=== PATIENT | male | born 1965 | race Caucasian/White ===

== ENCOUNTER 2017-11-10 12:10 | Emergency (ER) | payer MEDICAID ==
[2017-11-10 12:12] VITALS: BMI 29.5
[2017-11-10] MEDS ORDERED: Sodium Chloride 0.9% 1,000 ML IV STA (12:59)
--- NOTE | 2017-11-10 13:11 | ED PDOC ---
Arrival/HPI - General Chief Complaint: Seizure Time Seen by Provider: 11/10/17 12:39 Historian: Patient - History of Present Illness Narrative History of Present Illness (Text): 11/10/17 12:58 A 52 year old male, whose past medical history includes hypertension, brought into the emergency department by EMS accompanied by complaining of an episode of drowsiness. Patient reports this morning his blood pressure was high and took 2 pills of his bp medication instead of 1. He notes while sitting in the car he felt drowsy. witnessed patient shaking for approximately 10 minutes, but denies any loss of consciousness or urinary/ bowel incontinence. Patient denies any fever, chills, nausea, vomiting, abdominal pain, chest pain, shortness of breath, headache, dizziness or any other complaints. Time/Duration: Prior to Arrival Symptom Course: Improving Context: Other Past Medical History - Provider Review Nursing Documentation Reviewed: Yes - Infectious Disease Hx of Infectious Diseases: None - Cardiac Hx Hypertension: Yes - Endocrine/Metabolic Hx Diabetes Mellitus Type 2: Yes - Psychiatric Hx Substance Use: No - Anesthesia Hx Anesthesia: No Family/Social History - Physician Review Nursing Documentation Reviewed: Yes Family/Social History: No Known Family HX Smoking Status: Heavy Smoker > 10 Cigarettes Daily Hx Alcohol Use: No Hx Substance Use: No Allergies/Home Meds Allergies/Adverse Reactions: Allergies No Known Allergies Allergy (Verified 11/10/17 12:19) Home Medications: Home Meds Medication Instructions Recorded Confirmed Alogliptin Benzoate [Alogliptin] 1 tab PO DAILY 11/10/17 11/10/17 Atorvastatin [Lipitor] 1 tab PO DAILY 11/10/17 11/10/17 Empagliflozin [Jardiance] 1 tab PO DAILY 11/10/17 11/10/17 Gemfibrozil [Lopid] 1 tab PO BID 11/10/17 11/10/17 Glimepiride [Amaryl] 1 tab PO BID 11/10/17 11/10/17 Insulin Glargine,Hum.rec.anlog 5 unit SC HS 11/10/17 11/10/17 [Basaglar Kwikpen U-100] Lisinopril [Zestril] 1 tab PO DAILY 11/10/17 11/10/17 Lisinopril [Zestril] 1 tab PO HS 11/10/17 11/10/17 MetFORMIN [glucoPHAGE] 1 tab PO BID 11/10/17 11/10/17 Review of Systems - Physician Review All systems were reviewed & negative as marked: Yes - Review of Systems Constitutional: Other (drowsiness). absent: Fevers, Night Sweats Respiratory: absent: SOB Cardiovascular: absent: Chest Pain Gastrointestinal: absent: Abdominal Pain, Nausea, Vomiting Neurological: absent: Headache, Dizziness Physical Exam - Physical Exam Narrative Physical Exam (Text): Constitutional: No acute distress. Mildly drowsy. Head: Normocephalic. Atraumatic. Eyes: PERRL. ENT: Moist mucous membranes. No tongue biting. Neck: Supple. Cardiovascular: Regular rate. Chest: No tenderness. Respiratory: Clear to auscultation bilaterally. GI: Soft. Nontender. Nondistended. Back: No CVA tenderness. Musculoskeletal: No tenderness or swelling of extremities. Skin: No rash. Neurologic: Alert and Oriented x3, no focal deficit. Appearance: Positive for: Well-Appearing, Non-Toxic, Comfortable Pain Distress: None Mental Status: Positive for: Alert and Oriented X 3 Finger Stick Blood Glucose: 115 Medical Decision Making ED Course and Treatment: EKG shows NSR at [address]-segment elevations. Interpreted by me. Report Date : 11/10/2017 14:14:03 Procedure: Chest xray Dictator : Prabhjot Castaneda MD IMPRESSION: Cardiomegaly/mild CHF. Marked abnormalities on work up. I informed patient of risk of infection, CHF, other life threatening or disability causing illness and recommended admission. - Lab Interpretations Lab Results: 11/10/17 13:21 11/10/17 13:21 Lab Results 11/10/17 13:21: Sodium 145, Potassium 3.8, Chloride 106, Carbon Dioxide 17 L, Anion Gap 25 H, BUN 12, Creatinine 1.0, Est GFR ( Amer) > 60, Est GFR ( Non-Af Amer) > 60, Random Glucose 142 H, Calcium 9.9, Total Bilirubin 0.5, AST 44, ALT 33, Alkaline Phosphatase 94, Total Creatine Kinase 198, Total Protein 8.5 H, Albumin 4.5, Globulin 4.1, Albumin/Globulin Ratio 1.1, Lipase 216 11/10/17 13:21: WBC 22.0 H, RBC 5.92, Hgb 18.2 H*, Hct 53.7 H, MCV 90.7, MCH 30.7, MCHC 33.9, RDW 14.9 H, Plt Count 429, MPV 10.6, Gran % 46.7 L, Lymph % ( Auto) 47.5 H, [place] % (Auto) 4.8, Eos % (Auto) 0.8 L, Baso % (Auto) 0.2, Gran # 10.26 H, Lymph # (Auto) 10.4 H, [place] # (Auto) 1.1 H, Eos # (Auto) 0.2, Baso # ( Auto) 0.04 - RAD Interpretation Radiology Orders: 11/10/17 12:58 CHEST PORTABLE [RAD] Stat - Medication Orders Current Medication Orders: Discontinued Medications Sodium Chloride (Sodium Chloride 0.9%) 1,000 mls @ 999 mls/hr IV .Q1H1M STA Stop: 11/10/17 13:59 Last Admin: 11/10/17 14:16 Dose: 999 mls/hr eMAR Start Stop Document 11/10/17 14:16 [email or web address] (Rec: 11/10/17 14:16 [id number]) Intravenous Solution Start Date 11/10/17 Start Time 14:16 End Date 11/10/17 - Scribe Statement The provider has reviewed the documentation as recorded by the Robin Randhawa Provider Scribe Attestation: All medical record entries made by the Scribe were at my direction and personally dictated by me. I have reviewed the chart and agree that the record accurately reflects my personal performance of the history, physical exam, medical decision making, and the department course for this patient. I have also personally directed, reviewed, and agree with the discharge instructions and disposition. Disposition/Present on Arrival - Present on Arrival Any Indicators Present on Arrival: No History of DVT/PE: No History of Uncontrolled Diabetes: No Urinary Catheter: No History of Decub. Ulcer: No History Surgical Site Infection Following: None - Disposition Have Diagnosis and Disposition been Completed?: Yes Diagnosis: Leukocytosis, CHF (congestive heart failure) Disposition: AGAINST MEDICAL ADVICE Disposition Time: 14:28 Condition: GUARDED Discharge Instructions (ExitCare): Heart Failure, Adult (DC), Leaving Against Medical Advice Forms: [employer] (Polish) Against Medical Advice - AMA Patient Left Against Medical Advice: The patient declines admission to the hospital and wishes to leave the Emergency Department. This action is against my medical advice. This decision was made with informed refusal. The patient was told that admission to the hospital is necessary. Explanation of the reasons why were discussed. The risks of leaving were explained to the patient and include, but are not limited to, worsening of known or currently unknown conditions, permanent disability and from undiagnosed or untreated conditions. The patient has the capacity to make this informed decision and understands my explanation of the current medical problem and risks of leaving. The patient voluntarily accepts these risks and signed an AMA form documenting our conversation. The patient was given the opportunity to ask questions and reconsider. The patient was encouraged to return to the Emergency Department at any time for further care.
[2017-11-10 13:30] LABS: BASO # 0.04 K/mm3 (0.0-2.0); BASO % 0.2 % (0.0-3.0); EOS # 0.2 (0.0-0.7); EOS % 0.8 % (1.5-5.0); GRAN # 10.26 (1.4-6.5); GRAN % 46.7 % (50.0-68.0); LYMPH # 10.4 (1.2-3.4); LYMPH % 47.5 % (22.0-35.0); MEAN CELL VOLUME 90.7 fl (80.0-105.0); MEAN CORPUSCULAR HEMOGLOBIN 30.7 pg (25.0-35.0); MEAN CORPUSCULAR HGB CONC 33.9 g/dl (31.0-37.0); MEAN PLATELET VOLUME 10.6 fl (7.0-11.0); MONO # 1.1 (0.1-0.6); MONO % 4.8 % (1.0-6.0); RBC 5.92 10^6/uL (3.5-6.1); RED CELL DISTRIBUTION WIDTH 14.9 % (11.5-14.5)
[2017-11-10 13:40] LABS: ALB/GLOB RATIO 1.1 (1.1-1.8); ALBUMIN 4.5 g/dL (3.0-4.8); ALT/SGPT 33 U/L (7-56); AST/SGOT 44 U/L (17-59); BLOOD UREA NITROGEN 12 mg/dL (7-21); CALCIUM 9.9 mg/dL (8.4-10.5); GFR AFRICAN-AMERICAN > 60; GFR NON-AFRICAN AMERICAN > 60; LIPASE 216 U/L (23-300)
[2017-11-10 13:48] LABS: HEMOGLOBIN 18.2 g/dL (14.0-18.0)
--- NOTE | 2017-11-10 14:15 | RAD ---
HISTORY: drowsy COMPARISON: No prior. FINDINGS: LUNGS: Pulmonary vascular congestion. PLEURA: No significant pleural effusion identified, no pneumothorax apparent. CARDIOVASCULAR: Cardiomegaly OSSEOUS STRUCTURES: No significant abnormalities. VISUALIZED UPPER ABDOMEN: Normal. OTHER FINDINGS: None. IMPRESSION: Cardiomegaly/mild CHF.
[2017-11-10 15:29] VITALS: BP 139/89; PULSE 89; TEMP 98.1
[2017-11-10 15:31] VITALS: RESP 18; O2SAT 98
--- NOTE | 2017-11-10 16:40 | CARD ---
APPROVED REPORT EKG Measurement Heart [id number] <Conclusion> Normal sinus rhythm Possible Left atrial enlargement Left axis deviation Incomplete right bundle branch block Nonspecific T wave abnormality Abnormal ECG
== END 2017-11-10 15:31 | disposition left against medical advice (07) ==
LOC: ED 12:10
DX: I11.0 Hypertensive heart disease with heart failure (principal); I50.9 Heart failure, unspecified; D72.829 Elevated white blood cell count, unspecified; F17.210 Nicotine dependence, cigarettes, uncomplicated
CPT/HCPCS: 71045; 80053; 82550; 83690; 85025; 93005; 96374; 99285; J1885; J7040

== ENCOUNTER 2017-11-11 11:34 | Inpatient (IN) | payer MEDICAID ==
--- NOTE | 2017-11-11 12:18 | ED PDOC ---
Arrival/HPI - General Chief Complaint: Back Pain Time Seen by Provider: 11/11/17 11:36 Historian: Patient, EMS - History of Present Illness Time/Duration: Other (Yesterday) Symptom Onset: Gradual Symptom Course: Worsening Quality: Aching Severity Level: Severe Activities at Onset: Rest Associated Symptoms (Text): 11/11/17 12:15 Patient signed out from the emergency department AMA yesterday. He reports that his blood pressure was elevated and he took extra blood pressure medication and then became lethargic. Since that time he has developed severe low back pain, which is made worse by movement. He has some chronic dyspnea, which is worse with exertion. No chest pain. No cough congestion or URI. No palpitations. No abdominal pain nausea vomiting. No genitourinary symptoms. He works as a analyst business analysis. He denies any injury or trauma. He appears to be in severe distress. Past Medical History - Infectious Disease Hx of Infectious Diseases: None - Cardiac Hx Congestive Heart Failure: Yes Hx Hypertension: Yes - Endocrine/Metabolic Hx Diabetes Mellitus Type 2: Yes - Psychiatric Hx Substance Use: No - Anesthesia Hx Anesthesia: No Family/Social History - Physician Review Nursing Documentation Reviewed: Yes Family/Social History: Unknown Family HX Smoking Status: Heavy Smoker > 10 Cigarettes Daily Hx Alcohol Use: No Hx Substance Use: No Allergies/Home Meds Allergies/Adverse Reactions: Allergies No Known Allergies Allergy (Verified 11/11/17 11:41) Home Medications: Home Meds Medication Instructions Recorded Confirmed Alogliptin Benzoate [Alogliptin] 1 tab PO DAILY 11/10/17 11/10/17 Atorvastatin [Lipitor] 1 tab PO DAILY 11/10/17 11/10/17 Empagliflozin [Jardiance] 1 tab PO DAILY 11/10/17 11/10/17 Gemfibrozil [Lopid] 1 tab PO BID 11/10/17 11/10/17 Glimepiride [Amaryl] 1 tab PO BID 11/10/17 11/10/17 Insulin Glargine,Hum.rec.anlog 5 unit SC HS 11/10/17 11/10/17 [Basaglar Kwikpen U-100] Lisinopril [Zestril] 1 tab PO DAILY 11/10/17 11/10/17 Lisinopril [Zestril] 1 tab PO HS 11/10/17 11/10/17 MetFORMIN [glucoPHAGE] 1 tab PO BID 11/10/17 11/10/17 Review of Systems - Physician Review All systems were reviewed & negative as marked: Yes - Review of Systems Constitutional: absent: Fatigue, Fevers Respiratory: SOB. absent: Cough, Sputum, Wheezing Cardiovascular: absent: Chest Pain, Palpitations, Syncope Gastrointestinal: absent: Abdominal Pain, Diarrhea, Nausea, Vomiting Genitourinary Male: absent: Dysuria, Frequency, Hematuria Musculoskeletal: Back Pain. absent: Neck Pain Neurological: absent: Headache, Dizziness, Focal Weakness Physical Exam Vital Signs Temp Pulse Resp BP Pulse Ox 11/11/17 14:32 98.9 F 83 20 160/83 H 95 11/11/17 11:45 99.3 F 98 H 20 134/55 L 95 Temperature: Afebrile Blood Pressure: Normal Pulse: Regular Respiratory Rate: Normal Appearance: Positive for: Well-Appearing, Non-Toxic, Uncomfortable Pain Distress: Severe Mental Status: Positive for: Alert and Oriented X 3 - Systems Exam Head: Present: Atraumatic, Normocephalic Pupils: Present: PERRL Extroacular Muscles: Present: EOMI Conjunctiva: Present: Normal Mouth: Present: Moist Mucous Membranes Pharnyx: No: ERYTHEMA, EXUDATE, TONSILS ENLARGED Neck: Present: Normal Range of Motion Respiratory/Chest: Present: Clear to Auscultation, Good Air Exchange, Decreased Breath Sounds. No: Respiratory Distress, Accessory Muscle Use Cardiovascular: Present: Regular Rate and Rhythm, Normal S1, S2. No: Murmurs Abdomen: Present: Normal Bowel Sounds. No: Tenderness, Distention, Peritoneal Signs, Rebound, Guarding Back: Present: Normal Inspection, Paraspinal Tenderness (Bilateral lumbar paraspinous tenderness with spasm. No scoliosis. Negative straight leg raising.) . No: CVA Tenderness, Midline Tenderness Upper Extremity: Present: Normal Inspection. No: Cyanosis, Edema Lower Extremity: Present: Normal Inspection. No: Edema Neurological: Present: GCS=15, CN II-XII Intact, Speech Normal, Motor Func Grossly Intact Skin: Present: Warm, Dry, Normal Color. No: Rashes Psychiatric: Present: Alert, Oriented x 3, Normal Insight, Normal Concentration Medical Decision Making ED Course and Treatment: 11/11/17 13:44 EKG shows normal sinus rhythm rate approximately 85 with inverted T waves laterally and Q waves inferiorly with poor R-wave progression and no old available for comparison 11/11/17 15:11 Minimal improvement in low back pain. Patient agrees to admission to the hospital today. Hospitalist has been consulted. - Lab Interpretations Lab Results: 11/11/17 12:57 11/11/17 12:57 Lab Results 11/11/17 12:57: Sodium 139, Potassium 3.6, Chloride 107, Carbon Dioxide 23, Anion Gap 9 L, BUN 16, Creatinine 0.9, Est GFR ( Amer) > 60, Est GFR (Non -Af Amer) > 60, Random Glucose 231 H, Calcium 9.2, Total Bilirubin 0.5, AST 41, ALT 28, Alkaline Phosphatase 63, Lactate Dehydrogenase 934 H, Total Creatine Kinase 1312 H, CK-MB (CK-2) 2.5, CK-MB (CK-2) % Cancelled, Troponin I 0.01, NT- Pro-B Natriuret Pep 677 H, Total Protein 7.2, Albumin 3.7, Globulin 3.5, Albumin /Globulin Ratio 1.1 11/11/17 12:57: WBC 13.2 H D, RBC 5.47, Hgb 16.7, Hct 48.6, MCV 88.8, MCH 30.5, MCHC 34.4, RDW 14.6 H, Plt Count 328, MPV 9.9, Gran % 68.2 H, Lymph % (Auto) 27.0, [place] % (Auto) 4.1, Eos % (Auto) 0.5 L, Baso % (Auto) 0.2, Gran # 8.97 H, Lymph # (Auto) 3.6 H, [place] # (Auto) 0.5, Eos # (Auto) 0.1, Baso # (Auto) 0.03 - RAD Interpretation Radiology Orders: 11/11/17 12:14 CHEST TWO VIEWS (PA/LAT) [RAD] Stat LS SPINE WITH OBL > 18 YRS OLD [RAD] Stat Lumbosacral spine shows a compression fracture of L1, age indeterminate. Chest 2 view shows no infiltrate effusion or cardiomegaly. 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 No Sleep Is patient sleeping during reassessment? No Presence of Pain Presence of Pain Yes Pain Scale Used Pain Scale Used Numeric Location Upper or Lower Lower Pain Location Body Site Back Description Description Constant Aggravating Factors ADL's IVP Administration Document 11/11/17 14:28 OCS (Rec: 11/11/17 14:28 OCS [id number]) Charges for Administration # of IVP Administrations 1 Disposition/Present on Arrival - Present on Arrival Any Indicators Present on Arrival: No History of DVT/PE: No History of Uncontrolled Diabetes: No Urinary Catheter: No History of Decub. Ulcer: No History Surgical Site Infection Following: None - Disposition Have Diagnosis and Disposition been Completed?: Yes Diagnosis: Congestive heart failure, Lumbar compression fracture, Hyperglycemia due to type 1 diabetes mellitus, Leukocytosis Disposition: HOSPITALIZED Disposition Time: 15:12 Patient Plan: Observation, Telemetry Condition: GOOD Discharge Instructions (ExitCare): Heart Failure (ED) Referrals: Gil Villalobos [Primary Care Provider] - Follow up with primary Forms: [employer] ([place])
[2017-11-11 13:03] LABS: BASO # 0.03 K/mm3 (0.0-2.0); BASO % 0.2 % (0.0-3.0); EOS # 0.1 (0.0-0.7); EOS % 0.5 % (1.5-5.0); GRAN # 8.97 (1.4-6.5); GRAN % 68.2 % (50.0-68.0); HEMOGLOBIN 16.7 g/dL (14.0-18.0); LYMPH # 3.6 (1.2-3.4); MEAN CELL VOLUME 88.8 fl (80.0-105.0); MEAN CORPUSCULAR HEMOGLOBIN 30.5 pg (25.0-35.0); MEAN CORPUSCULAR HGB CONC 34.4 g/dl (31.0-37.0); MEAN PLATELET VOLUME 9.9 fl (7.0-11.0); MONO # 0.5 (0.1-0.6); MONO % 4.1 % (1.0-6.0); RBC 5.47 10^6/uL (3.5-6.1); RED CELL DISTRIBUTION WIDTH 14.6 % (11.5-14.5); WHITE BLOOD COUNT 13.2 10^3/ul (4.5-11.0)
[2017-11-11 13:15] LABS: ALB/GLOB RATIO 1.1 (1.1-1.8); ALBUMIN 3.7 g/dL (3.0-4.8); ALT/SGPT 28 U/L (7-56); AST/SGOT 41 U/L (17-59); BLOOD UREA NITROGEN 16 mg/dL (7-21); CALCIUM 9.2 mg/dL (8.4-10.5); GFR AFRICAN-AMERICAN > 60; GFR NON-AFRICAN AMERICAN > 60
[2017-11-11 13:24] LABS: B-TYPE NATRIURETIC PEPTIDE 677 pg/mL (0-450); TROPONIN I 0.01 ng/mL
[2017-11-11 13:37] LABS: CK-MB 2.5 ng/mL (0.0-3.6)
--- NOTE | 2017-11-11 14:50 | RAD ---
PROCEDURE: Radiographs of the Lumbar Spine. HISTORY: pain COMPARISON: No prior. FINDINGS: BONES: Compression deformities L1 and L4, age-acuity unknown. Loss of height of L5 vertebral body is partially obscured. DISC SPACES: Unremarkable. OTHER FINDINGS: None. IMPRESSION: Multiple compression deformities L1, L4, L5 noted. Etiology/acuity unknown. No comparison studies.
--- NOTE | 2017-11-11 14:51 | RAD ---
HISTORY: sob COMPARISON: No prior. TECHNIQUE: Chest PA and lateral FINDINGS: LUNGS: No active pulmonary disease. PLEURA: No significant pleural effusion identified. No pneumothorax apparent. CARDIOVASCULAR: No radiographic findings to suggest acute or significant cardiovascular disease. OSSEOUS STRUCTURES: No significant abnormalities. VISUALIZED UPPER ABDOMEN: Normal. OTHER FINDINGS: None. IMPRESSION: No active disease.
--- NOTE | 2017-11-11 15:36 | CP.PCM.HP ---
<MckeeChavez - Last Filed: 11/11/17 17:12> History of Present Illness - History of Present Illness History of Present Illness: 52 year old male with past medical history of DM, HTN, HLD presents with complaints of lower back pain which began yesterday. He states it is so painful that he cannot move and located in left lower back. He denies any radiation of the pain as well as any recent trauma or falls. Patient also admits to taking extra blood pressure medication yesterday because of high blood pressure, he cannot recall the name. Patient states he is feeling fatigue and his 5 year old daughter has been sick with a cold. Patient denies chest pain, shortness of breath, nausea, vomiting, fever, cough, recent travel or any other complaints at this time. PMH: DM, HTN, HLD PSH: none Allergies: denies Social: more than a pack a day for 40 years, denies alcohol or drug use Family: mother had DM Meds: lipitor, jardiance, Lopid, amaryl, insulin, metformin, lisinopril PMD: [place] Present on Admission - Present on Admission Any Indicators Present on Admission: No Review of Systems - Constitutional Constitutional: absent: Chills, Fever - EENT Eyes: absent: Blurred Vision, Change in Vision Ears: absent: Disequilibrium, Dizziness Nose/Mouth/Throat: absent: Nasal Congestion, Nasal Discharge - Cardiovascular Cardiovascular: absent: Chest Pain, Chest Pain at Rest, Chest Pain with Activity , Dyspnea - Respiratory Respiratory: Dyspnea on Exertion. absent: Cough, Dyspnea - Gastrointestinal Gastrointestinal: absent: Abdominal Pain, Constipation, Diarrhea, Nausea, Vomiting - Genitourinary Genitourinary: absent: Change in Urinary Stream, Difficulty Urinating - Integumentary Integumentary: absent: Sores, Striae - Neurological Neurological: absent: Disequilibrium, Dizziness, Tingling, Weakness Past Patient History - Infectious Disease Hx of Infectious Diseases: None - Past Social History Smoking Status: Heavy Smoker > 10 Cigarettes Daily - CARDIAC Hx Congestive Heart Failure: Yes Hx Hypertension: Yes - ENDOCRINE/METABOLIC Hx Diabetes Mellitus Type 2: Yes - PSYCHIATRIC Hx Substance Use: No - SURGICAL HISTORY Hx Surgeries: No - ANESTHESIA Hx Anesthesia: No Meds Allergies/Adverse Reactions: Allergies Allergy/AdvReac Type Severity Reaction Status Date / Time No Known Allergies Allergy Verified 11/11/17 11:41 Physical Exam - Constitutional Appears: Non-toxic, No Acute Distress Additional comments: obese - Head Exam Head Exam: ATRAUMATIC, NORMAL INSPECTION, NORMOCEPHALIC - Eye Exam Eye Exam: EOMI, Normal appearance - ENT Exam ENT Exam: Mucous Membranes Moist - Neck Exam Neck exam: Positive for: Normal Inspection - Respiratory Exam Respiratory Exam: Clear to Auscultation Bilateral, NORMAL BREATHING PATTERN - Cardiovascular Exam Cardiovascular Exam: REGULAR RHYTHM, +S1, +S2 - GI/Abdominal Exam GI & Abdominal Exam: Normal Bowel Sounds, Soft. absent: Tenderness - Extremities Exam Extremities exam: Negative for: pedal edema, tenderness - Neurological Exam Neurological exam: Alert, Oriented x3 Results - Vital Signs Recent Vital Signs: Last Vital Signs Temp 98.9 F 11/11/17 14:32 Pulse 83 11/11/17 14:32 Resp 20 11/11/17 14:32 BP 160/83 H 11/11/17 14:32 Pulse Ox 95 11/11/17 14:32 - Labs Result Diagrams: 11/11/17 12:57 11/11/17 12:57 Labs: Laboratory Results - last 24 hr 11/11/17 11/11/17 12:57 12:57 WBC 13.2 H D RBC 5.47 Hgb 16.7 Hct 48.6 MCV 88.8 MCH 30.5 MCHC 34.4 RDW 14.6 H Plt Count 328 MPV 9.9 Gran % 68.2 H Lymph % (Auto) 27.0 [place] % (Auto) 4.1 Eos % (Auto) 0.5 L Baso % (Auto) 0.2 Gran # 8.97 H Lymph # (Auto) 3.6 H [place] # (Auto) 0.5 Eos # (Auto) 0.1 Baso # (Auto) 0.03 Sodium 139 Potassium 3.6 Chloride 107 Carbon Dioxide 23 Anion Gap 9 L BUN 16 Creatinine 0.9 Est GFR ( Amer) > 60 Est GFR (Non-Af Amer) > 60 Random Glucose 231 H Calcium 9.2 Total Bilirubin 0.5 AST 41 ALT 28 Alkaline Phosphatase 63 Lactate Dehydrogenase 934 H Total Creatine Kinase 1312 H CK-MB (CK-2) 2.5 CK-MB (CK-2) % Cancelled Troponin I 0.01 NT-Pro-B Natriuret Pep 677 H Total Protein 7.2 Albumin 3.7 Globulin 3.5 Albumin/Globulin Ratio 1.1 Assessment & Plan - Assessment and Plan (Free Text) Assessment: 52 year old male with past medical history of DM, HTN, HLD presents with complaints of lower back pain which began yesterday. Patient also complains of fatigue. Plan: 1. Back Pain -Xray of LS spine showing compression deformities L1, L4, L5 noted. Etiology/ acuity unknown. No comparison studies -tylenol for pain -flexeril given in ED -lidocaine patch -flexeril -PT evaluation pending -MRI lumbar spine pending 2. Leukocytosis seocndary to possible viral illness -Procal pending -blood cultures pending -urine cultures pending -afebrile 3. DM -ISS high with ACHS -low consistent carb diet -A1C pending 4. HTN -monitor -continue home meds 5. HLD -continue lipitor 40 -Lipid panel pending 6. Possible underlying CHF -clnically no signs of fluid overload -EKG NSR @85, pending official read -chest xray: no congestion, no cardiomegaly -BNP: 677 -Cardiology consulted, Tadeo, follow recs -T4, TSH pending -echo pending -troponins x3 trend 7. Lethargy -CT head pending -EEG to rule out seizure 8. Elevated CPK -follow levels daily with labs -NS@100 PPX -protonix -heparin SC <Oliver Hicks - Last Filed: 11/11/17 18:50> Results - Vital Signs Recent Vital Signs: Last Vital Signs Temp 98.9 F 11/11/17 18:30 Pulse 83 11/11/17 18:30 Resp 18 11/11/17 18:30 BP 160/83 H 11/11/17 18:30 Pulse Ox 95 11/11/17 14:32 - Labs Result Diagrams: 11/11/17 12:57 11/11/17 12:57 Attending/Attestation - Attestation I have personally seen and examined this patient.: Yes I have fully participated in the care of the patient.: Yes I have reviewed all pertinent clinical information: Yes Notes (Text): 11/11/17 18:43 attending note; Patient seen and examined with resident in ER. Patient is a 52-year-old male with past medical history of diabetes, hypertension, hyperlipidemia, obesity presents with complaints of lower back pain which began yesterday. He states it is so painful that he cannot move and located in left lower back. patient was evaluated in the ER yesterday. Found to have elevated white count and hypertension. Patient signed AGAINST MEDICAL ADVICE. came back with generalized weakness. Patient had recent sick contact with 5 year old daughter. Denied any recorded temperature at home. Looks toxic. lethargy/questionable seizure yesterday. EEG ordered. Possibly the reason for elevated CPK. shortness of breath; EKG showed nonspecific ST inversion in lateral leads. Cardiac enzymes ordered. echocardiogram ordered. Cardiology evaluation requested. Mild rhabdomyolysis; patient had chills yesterday. Denies any fall or injury. Denies any drug abuse. Continue IV fluids. Chest x-ray is negative for acute infiltrates. Diabetes; on insulin sliding scale. Monitor and add home meds. Leukocytosis; blood, urine culture, pro-calcitonin ordered. rapid flu ordered. Back pain; x-ray showed multiple compression fracture L1, L4-L5. Patient denies any injury or fall. MRI ordered. PT evaluation requested. Currently able to move extremities. No urinary or bowel incontinence. No saddle anesthesia. upon discharge patient will up with PMD Dr. Villalobos. 11/11/17 18:50
[2017-11-11 16:20] LABS: HDL CHOLESTEROL 32 mg/dL (29-60)
[2017-11-11 16:30] LABS: LDL CHOLESTEROL 133 mg/dL (0-129)
[2017-11-11 16:36] LABS: T4 7.1 ug/dL (5.5-11.0)
[2017-11-11] MEDS: Insulin Lispro (HUMAlog) HIGH Coverage SC SCH ×2 (18:30→23:48)
[2017-11-11 18:34] VITALS: BMI 33.3
[2017-11-11] MEDS: Lidocaine 5% Patch TD SCH (18:52)
--- NOTE | 2017-11-11 19:00 | CT ---
EXAM: CT Head Without Intravenous Contrast EXAM DATE/TIME: 11/11/2017 5:08 PM CLINICAL HISTORY: 52 years old, male; Signs and symptoms; Malaise or fatigue; Additional info: Lethargy TECHNIQUE: Axial computed tomography images of the head/brain without intravenous contrast. All CT scans at this facility use one or more dose reduction techniques, viz.: automated exposure control; ma/kV adjustment per patient size (including targeted exams where dose is matched to indication; i.e. head); or iterative reconstruction technique. Coronal and sagittal reformatted images were created and reviewed. COMPARISON: There are no prior studies for comparison. FINDINGS: Brain: Ventricles are normal in size and configuration. There is no midline shift. There is a heterogeneous primarily increased attenuation 1.7 x 1.6 x 1.7 cm left occipital mass. There is surrounding vasogenic edema. There are no abnormal fluid collections. Hutchinson-white differentiation is maintained. Ventricles: See above Bones: Cranial vault is intact. Soft tissues: unremarkable Sinuses: There is moderately large retention cyst/polyp in the right maxillary sinus. Ears and mastoids: Middle earsare unremarkable. Left mastoid is unremarkable. There is partial opacification of the right mastoid. Orbits: Orbital contents are unremarkable. IMPRESSION: Hemorrhagic versus hyperdense left occipital mass with surrounding vasogenic edema, appearance is suspicious for neoplasm; sinus and ear disease as described above MRI without and with contrast suggested for more complete
[2017-11-11 19:21] LABS: URINE BILIRUBIN NEGATIVE (NEGATIVE); URINE BLOOD MODERATE (NEGATIVE); URINE GLUCOSE (UA) >=1000 mg/dL (NEGATIVE); URINE LEUKOCYTE ESTERASE NEGATIVE Leu/uL (NEGATIVE); URINE PROTEIN 100 mg/dL (<30 mg/dL); URINE UROBILINOGEN 0.2 E.U./dL (<1 E.U./dL)
[2017-11-11 19:22] LABS: URINE APPEARANCE CLEAR (CLEAR); URINE COLOR YELLOW (YELLOW)
[2017-11-11 20:12] LABS: BARBITURATES, UR NEGATIVE (NEGATIVE); BENZODIAZEPINES, UR NEGATIVE (NEGATIVE); OPIATES, UR NEGATIVE (NEGATIVE); PHENCYCLIDINE, UR NEGATIVE (NEGATIVE)
[2017-11-11 20:25] LABS: URINE BACTERIA LARGE (NEG); URINE EPITHELIAL CELLS 0 - 2 /hpf (0-5)
--- NOTE | 2017-11-11 22:58 | CARD ---
APPROVED REPORT EKG Measurement Heart [id number] <Conclusion> Normal sinus rhythm Left anterior fascicular block Cannot rule out Inferior infarct (masked by fascicular block?), age undetermined Cannot rule out Anterior infarct, age undetermined T wave abnormality, consider lateral ischemia Abnormal ECG
[2017-11-12] MEDS: Pantoprazole 40 mg EC Tab PO SCH (06:01)
[2017-11-12 06:53] LABS: HEMOGLOBIN 17.4 g/dL (14.0-18.0); MEAN CELL VOLUME 89.9 fl (80.0-105.0); MEAN CORPUSCULAR HEMOGLOBIN 30.4 pg (25.0-35.0); MEAN CORPUSCULAR HGB CONC 33.8 g/dl (31.0-37.0); MEAN PLATELET VOLUME 10.1 fl (7.0-11.0); RBC 5.73 10^6/uL (3.5-6.1); WHITE BLOOD COUNT 13.9 10^3/ul (4.5-11.0)
[2017-11-12 07:04] LABS: ALBUMIN 3.7 g/dL (3.0-4.8); ALT/SGPT 29 U/L (7-56); AST/SGOT 33 U/L (17-59); BLOOD UREA NITROGEN 15 mg/dL (7-21); GFR AFRICAN-AMERICAN > 60; GFR NON-AFRICAN AMERICAN > 60
[2017-11-12] MEDS: Insulin Lispro (HUMAlog) HIGH Coverage SC SCH ×4 (08:35→21:56)
[2017-11-12] MEDS: Lidocaine 5% Patch TD SCH (09:10)
--- NOTE | 2017-11-12 10:21 | CP.PCM.PN ---
Subjective - Date & Time of Evaluation Date of Evaluation: 11/12/17 Time of Evaluation: 10:20 - Subjective Subjective: off floor getting EEG Awaiting MRI Objective - Vital Signs/Intake and Output Vital Signs (last 24 hours): Temp Pulse Resp BP Pulse Ox 97.8 F 83 18 141/96 H 95 11/12/17 06:00 11/12/17 09:10 11/12/17 06:00 11/12/17 09:10 11/12/17 06:00 - Medications Medications: Current Medications Acetaminophen (Tylenol 325mg Tab) 650 mg PO Q6H PRN PRN Reason: Fever >100.4 F Atorvastatin Calcium (Lipitor) 40 mg PO HS [facility] Cyclobenzaprine HCl (Flexeril) 5 mg PO TID [facility] Last Admin: 11/12/17 09:10 Dose: 5 mg Glimepiride (Amaryl) 1 mg PO BID [facility] Last Admin: 11/12/17 09:10 Dose: 1 mg Heparin Sodium (Porcine) (Heparin) 5,000 units SC Q12 [facility] PRN Reason: Protocol Last Admin: 11/11/17 23:28 Dose: 5,000 units Ibuprofen (Motrin Tab) 400 mg PO Q6H PRN PRN Reason: Pain, Mild (1-3) Last Admin: 11/12/17 06:01 Dose: 400 mg Insulin Human Lispro (Humalog High) 0 units SC ACHS [facility] PRN Reason: Protocol Last Admin: 11/12/17 08:35 Dose: Not Given Lidocaine (Lidoderm) 1 ea TD DAILY [facility] Last Admin: 11/12/17 09:10 Dose: 1 ea Lisinopril (Zestril) 10 mg PO DAILY [facility] Last Admin: 11/12/17 09:10 Dose: 10 mg Pantoprazole Sodium (Protonix Ec Tab) 40 mg PO 0600 [facility] Last Admin: 11/12/17 06:01 Dose: 40 mg - Labs Labs: 11/12/17 06:30 11/12/17 06:30
[2017-11-12] MEDS: Morphine 2 mg/ml ISec IVP SCH ×3 (13:05→19:01)
--- NOTE | 2017-11-12 13:19 | PCM.FALL ---
Post Fall Progress Note - Post Fall Fall Date: 11/12/17 Fall Time: 13:05 Description of Fall: Patient slowly dropped to both knees due to back pain after trying to get out of bed independantly - Post Fall Exam Vital Sign: Temp Pulse Resp BP Pulse Ox 99.9 F H 87 16 159/89 H 95 11/12/17 12:00 11/12/17 12:00 11/12/17 12:00 11/12/17 12:00 11/12/17 06:00 Skull Exam: Negative for: Scalp wound, Scalp hematoma, Scalp depression, Ridge in skull Eye Exam: Positive for: Pupils reactive. Negative for: Pupils equal Ear Exam: Negative for: Discharge, Bleeding Nose Exam: Negative for: Discharge, Bleeding Skin Exam: Positive for: Colour (normal). Negative for: Lacerations, Grazes, Bruising Mouth Exam: Negative for: Tongue bitten, Teeth dislodge Neck Exam: Negative for: Tenderness, Tingling, Weakness Spinal Exam: Negative for: Tenderness, Tingling, Weakness Chest Exam: Negative for: Difficulty breathing, Tenderness in collar bones, Tenderness in ribs Abdomen Exam: Negative for: Tenderness Pelvic Exam: Negative for: Tenderness, Hematuria Arm Exam: Negative for: Deformity, Alteration in range of movement Leg Exam: Negative for: Deformity, Alteration in range of movement Other pertinent findings: b/l knees without warmth, erythema, abrasions, edema, lacerations; symmetric; nontender; full active and passive ROM Impression/Plan: Patient slowly dropped to knees due to back pain when trying to get up out of bed independantly. No signs of trauma. Mental status normal. Denies chest pain, dizziness, shortness of breath, palpitations, headache, confusion, vision changes, hearing changes, focal weakness or numbness. Extremity exam benign. Vitals WNL, though BP elevated, likely because patient was agitated, requested pain medications for his baseline back pain. Plan: Pain management, continue to monitor; high-risk fall precautions in place
--- NOTE | 2017-11-12 14:09 | CP.PCM.PN ---
<JjShay - Last Filed: 11/12/17 17:32> Subjective - Date & Time of Evaluation Date of Evaluation: 11/12/17 Time of Evaluation: 17:32 - Subjective Subjective: Medicine progress note: Dr. Alarcon Patient seen and examined at bedside. Patient states that he is still having pain in his back, otherwise denies nausea, vomiting, diarrhea. Upon further probing, patient stated that the back pain started only when he was sitting and lounging. Objective - Vital Signs/Intake and Output Vital Signs (last 24 hours): Temp Pulse Resp BP Pulse Ox 99.9 F H 87 16 159/89 H 95 11/12/17 12:00 11/12/17 12:00 11/12/17 12:00 11/12/17 12:00 11/12/17 06:00 - Medications Medications: Current Medications Acetaminophen (Tylenol 325mg Tab) 650 mg PO Q6H PRN PRN Reason: Fever >100.4 F Atorvastatin Calcium (Lipitor) 40 mg PO HS [facility] Cyclobenzaprine HCl (Flexeril) 5 mg PO TID [facility] Last Admin: 11/12/17 09:10 Dose: 5 mg Glimepiride (Amaryl) 1 mg PO BID [facility] Last Admin: 11/12/17 09:10 Dose: 1 mg Heparin Sodium (Porcine) (Heparin) 5,000 units SC Q12 [facility] PRN Reason: Protocol Last Admin: 11/12/17 11:25 Dose: 5,000 units Ibuprofen (Motrin Tab) 400 mg PO Q6H PRN PRN Reason: Pain, Mild (1-3) Last Admin: 11/12/17 12:30 Dose: 400 mg Insulin Human Lispro (Humalog High) 0 units SC ACHS [facility] PRN Reason: Protocol Last Admin: 11/12/17 12:30 Dose: 2 units Lidocaine (Lidoderm) 1 ea TD DAILY [facility] Last Admin: 11/12/17 09:10 Dose: 1 ea Lisinopril (Zestril) 10 mg PO DAILY [facility] Last Admin: 11/12/17 09:10 Dose: 10 mg Morphine Sulfate (Morphine) 2 mg IVP Q6H [facility] Last Admin: 11/12/17 13:27 Dose: 2 mg Pantoprazole Sodium (Protonix Ec Tab) 40 mg PO 0600 [facility] Last Admin: 11/12/17 06:01 Dose: 40 mg - Labs Labs: 11/12/17 06:30 11/12/17 06:30 - Constitutional Appears: Well - Head Exam Head Exam: ATRAUMATIC, NORMAL INSPECTION, NORMOCEPHALIC - Eye Exam Eye Exam: EOMI, Normal appearance, PERRL Pupil Exam: NORMAL ACCOMODATION, PERRL - ENT Exam ENT Exam: Mucous Membranes Moist, Normal Exam - Neck Exam Neck Exam: Full ROM, Normal Inspection. absent: Lymphadenopathy - Respiratory Exam Respiratory Exam: Clear to Ausculation Bilateral, NORMAL BREATHING PATTERN - Cardiovascular Exam Cardiovascular Exam: REGULAR RHYTHM, +S1, +S2. absent: Murmur - GI/Abdominal Exam GI & Abdominal Exam: Soft, Normal Bowel Sounds. absent: Tenderness - Extremities Exam Extremities Exam: Full ROM, Normal Capillary Refill, Normal Inspection. absent : Joint Swelling, Pedal Edema - Back Exam Back Exam: NORMAL INSPECTION - Neurological Exam Neurological Exam: Alert, Awake, CN II-XII Intact, Normal Gait, Oriented x3 - Psychiatric Exam Psychiatric exam: Normal Affect, Normal Mood - Skin Skin Exam: Dry, Intact, Normal Color, Warm - Additional Findings Additional findings: Tenderness to palpation in back on left side Manjit's sign negative Assessment and Plan - Assessment and Plan (Free Text) Assessment: 52 year old male with past medical history of DM, HTN, HLD presents with complaints of lower back pain which began yesterday. Patient also complains of fatigue. Plan: Back Pain -Xray of LS spine showing compression deformities L1, L4, L5 noted. Etiology/ acuity unknown. No comparison studies -tylenol for pain -flexeril given in ED -lidocaine patch -flexeril -PT evaluation pending -MRI lumbar spine pending -Added morphine 2 q6 MALGORZATA for moderate or less; morphine 2 q4 PRN Leukocytosis seocndary to possible viral illness -Procal pending -blood cultures pending -urine cultures pending -afebrile -ID Consult: Dr. Nathan Possible seizure activity -EEG done today -subjective finding, informed by family DM -ISS high with ACHS -low consistent carb diet -A1C: 8.0 HTN -monitor -continue home meds HLD -continue lipitor 80 -Lipid panel pending Possible underlying CHF -clnically no signs of fluid overload -EKG NSR @85, pending official read -chest xray: no congestion, no cardiomegaly -BNP: 677 -Cardiology consulted, Carlyle, elías recs -T4 normal, TSH low -echo pending -troponins x 3: negative Lethargy -CT head pending -EEG to rule out seizure Elevated CPK -follow levels daily with labs -NS@100 <Ana Lilia Alarcon - Last Filed: 11/12/17 18:42> Objective - Vital Signs/Intake and Output Vital Signs (last 24 hours): Temp Pulse Resp BP Pulse Ox 99.9 F H 89 16 159/89 H 95 11/12/17 12:00 11/12/17 14:00 11/12/17 12:00 11/12/17 12:00 11/12/17 06:00 Intake and Output: 11/12/17 11/12/17 06:59 18:59 Intake Total 840 Output Total 300 Balance 540 - Medications Medications: Current Medications Acetaminophen (Tylenol 325mg Tab) 650 mg PO Q6H PRN PRN Reason: Fever >100.4 F Atorvastatin Calcium (Lipitor) 40 mg PO HS [facility] Cyclobenzaprine HCl (Flexeril) 5 mg PO TID [facility] Last Admin: 11/12/17 17:50 Dose: 5 mg Glimepiride (Amaryl) 1 mg PO BID [facility] Last Admin: 11/12/17 17:50 Dose: 1 mg Ibuprofen (Motrin Tab) 400 mg PO Q6H PRN PRN Reason: Pain, Mild (1-3) Last Admin: 11/12/17 12:30 Dose: 400 mg Insulin Human Lispro (Humalog High) 0 units SC ACHS [facility] PRN Reason: Protocol Last Admin: 11/12/17 17:49 Dose: 4 units Lidocaine (Lidoderm) 1 ea TD DAILY [facility] Last Admin: 11/12/17 09:10 Dose: 1 ea Lisinopril (Zestril) 10 mg PO DAILY [facility] Last Admin: 11/12/17 09:10 Dose: 10 mg Morphine Sulfate (Morphine) 2 mg IVP Q6H [facility] Last Admin: 11/12/17 13:27 Dose: 2 mg Morphine Sulfate (Morphine) 2 mg IVP Q4H PRN PRN Reason: Pain, severe (8-10) Pantoprazole Sodium (Protonix Ec Tab) 40 mg PO 0600 [facility] Last Admin: 11/12/17 06:01 Dose: 40 mg - Labs Labs: 11/12/17 06:30 11/12/17 06:30 Attending/Attestation - Attestation I have personally seen and examined this patient.: Yes I have fully participated in the care of the patient.: Yes I have reviewed all pertinent clinical information, including history, physical exam and plan: Yes Notes (Text): I have seen and examined the patient at bedside. Agree with the above note with the following additions/ exceptions: Briefly this is 52 year old male with past medical history of IDDM, hypertension, hyperlipidemia, morbid obesity, tobacco use who came for evaluation of acute onset of lower midline back pain. He was seen in ED and he ended up leaving AMA. He went home and developed seizure where he had generalized tonic clonic seizure and foaming of the mouth without any urinary or bowel incontinence witnessed by patients . Subsequently patient devolped generalized weakness and postictal confusion. Patient was brought to the hospital. CT head revealed occipital mass with some hemorrhagic component along with vasogenic edema. EEG done and result is pending at this time. Lumbar spine xray revealed compression fracture of L1, L4 and L5. He denies using steroids and denies any sort of trauma. He was started on muscle relaxants and analgesics. Back brace ordered. Patient denies any numbness, tingling, saddle anesthesias or muscle weakness. Neurosurgical consult pending. MRI ordered for further evaluation. He had mild dyspnea upon presentation and had some EKG changes. Echo pending. Cardiology consult also pending. CXR negative for infiltrates. Patient has leukocytosis. UA and flu negative. Cultures pending. Upon discharge patient will up with PMD Dr. Villalobos. Dr Ana Lilia alarcon
--- NOTE | 2017-11-12 15:12 | CP.PCM.CON ---
History of Present Illness - History of Present Illness History of Present Illness: Mr. Rivera is a 52-year-old man with a past medical history of HTN, DM, and a 45- pack-year smoking history, who presented to the ED after the sudden onset of severe lower back pain that was disabling and causing him difficulty with ambulation. Lumbar X-ray showed multiple compression deformities. CT scan of the head showed a left occipital lobe mass with possible hemorrhagic component. Review of Systems - Review of Systems All systems: reviewed and no additional remarkable complaints except Past Patient History - Infectious Disease Hx of Infectious Diseases: None - Past Social History Smoking Status: Heavy Smoker > 10 Cigarettes Daily - CARDIAC Hx Hypertension: Yes - ENDOCRINE/METABOLIC Hx Diabetes Mellitus Type 2: Yes - MUSCULOSKELETAL/RHEUMATOLOGICAL Hx Falls: No - PSYCHIATRIC Hx Substance Use: No - SURGICAL HISTORY Hx Surgeries: No - ANESTHESIA Hx Anesthesia: No Meds Allergies/Adverse Reactions: Allergies Allergy/AdvReac Type Severity Reaction Status Date / Time No Known Allergies Allergy Verified 11/11/17 11:41 - Medications Medications: Current Medications Acetaminophen (Tylenol 325mg Tab) 650 mg PO Q6H PRN PRN Reason: Fever >100.4 F Atorvastatin Calcium (Lipitor) 40 mg PO HS [facility] Cyclobenzaprine HCl (Flexeril) 5 mg PO TID [facility] Last Admin: 11/12/17 14:31 Dose: 5 mg Glimepiride (Amaryl) 1 mg PO BID [facility] Last Admin: 11/12/17 09:10 Dose: 1 mg Heparin Sodium (Porcine) (Heparin) 5,000 units SC Q12 [facility] PRN Reason: Protocol Last Admin: 11/12/17 11:25 Dose: 5,000 units Ibuprofen (Motrin Tab) 400 mg PO Q6H PRN PRN Reason: Pain, Mild (1-3) Last Admin: 11/12/17 12:30 Dose: 400 mg Insulin Human Lispro (Humalog High) 0 units SC ACHS [facility] PRN Reason: Protocol Last Admin: 11/12/17 12:30 Dose: 2 units Lidocaine (Lidoderm) 1 ea TD DAILY [facility] Last Admin: 11/12/17 09:10 Dose: 1 ea Lisinopril (Zestril) 10 mg PO DAILY [facility] Last Admin: 11/12/17 09:10 Dose: 10 mg Morphine Sulfate (Morphine) 2 mg IVP Q6H [facility] Last Admin: 11/12/17 13:27 Dose: 2 mg Pantoprazole Sodium (Protonix Ec Tab) 40 mg PO 0600 [facility] Last Admin: 11/12/17 06:01 Dose: 40 mg Physical Exam - Neurological Exam Neurological exam: Abnormal Gait, Alert, CN II-XII Intact, Oriented x3 Additional comments: Reflexes are brisk on the right upper and lower extremities. He has no visual deficits to confrontation. Lower extremity examination is limited due to back pain, but he did not have any significant weakness when the joints were isolated. He could not stand due to pain. Results - Vital Signs Recent Vital Signs: Last Vital Signs Temp 99.9 F H 11/12/17 12:00 Pulse 87 11/12/17 12:00 Resp 16 11/12/17 12:00 BP 159/89 H 11/12/17 12:00 Pulse Ox 95 11/12/17 06:00 - Labs Result Diagrams: 11/12/17 06:30 11/12/17 06:30 Labs: Laboratory Results - last 24 hr 11/11/17 11/11/17 11/11/17 18:30 18:45 18:45 WBC RBC Hgb Hct MCV MCH MCHC RDW Plt Count MPV Sodium Potassium Chloride Carbon Dioxide Anion Gap BUN Creatinine Est GFR ( Amer) Est GFR (Non-Af Amer) POC Glucose (mg/dL) 110 Random Glucose Calcium Total Bilirubin AST ALT Alkaline Phosphatase Troponin I Total Protein Albumin Globulin Albumin/Globulin Ratio Urine Color Yellow Urine Appearance Clear Urine pH 6.0 Ur Specific Hines 1.025 Urine Protein 100 H Urine Glucose (UA) >=1000 Urine Ketones Negative Urine Blood Moderate H Urine Nitrate Negative Urine Bilirubin Negative Urine Urobilinogen 0.2 Ur Leukocyte Esterase Negative Urine RBC 5 - 10 Urine WBC 1 - 3 Ur Epithelial Cells 0 - 2 Urine Bacteria Large Urine Opiates Screen Negative Urine Methadone Screen Negative Ur Barbiturates Screen Negative Ur Phencyclidine Scrn Negative Ur Amphetamines Screen Negative U Benzodiazepines Scrn Negative U Oth Cocaine Metabols Negative U Cannabinoids Screen Negative Influenza Typ A,B (EIA) 11/11/17 11/11/17 11/11/17 20:20 21:30 23:06 WBC RBC Hgb Hct MCV MCH MCHC RDW Plt Count MPV Sodium Potassium Chloride Carbon Dioxide Anion Gap BUN Creatinine Est GFR ( Amer) Est GFR (Non-Af Amer) POC Glucose (mg/dL) 189 H Random Glucose Calcium Total Bilirubin AST ALT Alkaline Phosphatase Troponin I 0.02 D Total Protein Albumin Globulin Albumin/Globulin Ratio Urine Color Urine Appearance Urine pH Ur Specific Hines Urine Protein Urine Glucose (UA) Urine Ketones Urine Blood Urine Nitrate Urine Bilirubin Urine Urobilinogen Ur Leukocyte Esterase Urine RBC Urine WBC Ur Epithelial Cells Urine Bacteria Urine Opiates Screen Urine Methadone Screen Ur Barbiturates Screen Ur Phencyclidine Scrn Ur Amphetamines Screen U Benzodiazepines Scrn U Oth Cocaine Metabols U Cannabinoids Screen Influenza Typ A,B (EIA) Negative for flu a/b 11/12/17 11/12/17 11/12/17 01:08 06:30 06:30 WBC 13.9 H RBC 5.73 Hgb 17.4 Hct 51.5 MCV 89.9 MCH 30.4 MCHC 33.8 RDW 15.0 H Plt Count 330 MPV 10.1 Sodium 144 Potassium 3.8 Chloride 112 H Carbon Dioxide 21 Anion Gap 16 BUN 15 Creatinine 0.8 Est GFR ( Amer) > 60 Est GFR (Non-Af Amer) > 60 POC Glucose (mg/dL) Random Glucose 154 H Calcium 9.0 Total Bilirubin 0.5 AST 33 ALT 29 Alkaline Phosphatase 61 Troponin I 0.02 Total Protein 7.3 Albumin 3.7 Globulin 3.6 Albumin/Globulin Ratio 1.0 L Urine Color Urine Appearance Urine pH Ur Specific Hines Urine Protein Urine Glucose (UA) Urine Ketones Urine Blood Urine Nitrate Urine Bilirubin Urine Urobilinogen Ur Leukocyte Esterase Urine RBC Urine WBC Ur Epithelial Cells Urine Bacteria Urine Opiates Screen Urine Methadone Screen Ur Barbiturates Screen Ur Phencyclidine Scrn Ur Amphetamines Screen U Benzodiazepines Scrn U Oth Cocaine Metabols U Cannabinoids Screen Influenza Typ A,B (EIA) 11/12/17 11/12/17 07:30 11:19 WBC RBC Hgb Hct MCV MCH MCHC RDW Plt Count MPV Sodium Potassium Chloride Carbon Dioxide Anion Gap BUN Creatinine Est GFR ( Amer) Est GFR (Non-Af Amer) POC Glucose (mg/dL) 133 H 185 H Random Glucose Calcium Total Bilirubin AST ALT Alkaline Phosphatase Troponin I Total Protein Albumin Globulin Albumin/Globulin Ratio Urine Color Urine Appearance Urine pH Ur Specific Hines Urine Protein Urine Glucose (UA) Urine Ketones Urine Blood Urine Nitrate Urine Bilirubin Urine Urobilinogen Ur Leukocyte Esterase Urine RBC Urine WBC Ur Epithelial Cells Urine Bacteria Urine Opiates Screen Urine Methadone Screen Ur Barbiturates Screen Ur Phencyclidine Scrn Ur Amphetamines Screen U Benzodiazepines Scrn U Oth Cocaine Metabols U Cannabinoids Screen Influenza Typ A,B (EIA) Assessment & Plan (1) Brain mass Assessment and Plan: The patient has a [id number] smoking history, a brain mass and compression fracture of the spine. These may all be related due to metastatic cancer. I recommend MRI of the brain with and without contrast as well as the thoracic and lumbar spine. The patient should undergo CT scan of the chest abdomen and pelvis to evaluate for a primary mass. Continue managing pain per the primary team. Avoid anticoagulation or antiplatelet agents for now until more information is obtained with the MRI of the brain to evaluate for hemorrhagic components. Thank you. Status: Acute Priority: High (2) Lumbar compression fracture Status: Acute Priority: High
[2017-11-12] MEDS ORDERED: Morphine 2 mg/ml ISec IVP PRN (15:50)
--- NOTE | 2017-11-12 17:47 | CON ---
DATE: 11/12/2017 CARDIOLOGY CONSULTATION HISTORY OF PRESENT ILLNESS: The patient is a 52-year-old male who presents with lower back pain. He signed out against medical advice and he presented with dizziness while he took an extra dose of his blood pressure pills. The patient's past medical history includes hypertension, diabetes mellitus, hypercholesterolemia and a heavy smoker in his whole life. He was found to have a compression fracture in his lower back. He continues to experience lower back pain. He denies chest pain. Denies shortness of breath. SOCIAL HISTORY: The patient is an active smoker. He drives a bus. REVIEW OF SYSTEMS: Fourteen-point review of systems is reviewed. His review of systems is free of cardiac issues, but complains of lower back pain. PHYSICAL EXAMINATION: VITAL SIGNS: Blood pressure is 141/96, heart rates in the 80s. NECK: Negative JVD. LUNGS: Without rales. HEART: Reveals S1, S2. EXTREMITIES: Without edema. LABORATORY DATA: EKG shows normal sinus rhythm with poor R-wave progression with diffuse ST-T changes across the anterior precordium. The hemoglobin is 17.4, white count is 13.9. Troponins are negative x2. Glucose is 154. CT of the head suggestive of intracerebral mass. X-ray of the spine reveals compression fractures. IMPRESSION: 1. High probability for coronary artery disease with abnormal electrocardiogram. 2. Diabetes mellitus. 3. Hypertension. 4. Hypercholesterolemia. 5. Obesity. 6. Compression fractures of L4-L5. 7. Intracerebral mass. PLAN: Given these findings, we will obtain an echocardiogram to evaluate his LV function. They are complex multiorgan issues. We will need a neurology evaluation and neurosurgical evaluation to delineate his intracerebral mass. Pain medications have been ordered for the patient's lower back pain. The patient will need extensive cardiac workup given his markedly abnormal EKG and high probability for CAD. I have discussed with the patient about his need to stop smoking. Haroon Tadeo MD
[2017-11-12 20:59] LABS: CK-MB 1.5 ng/mL (0.0-3.6)
[2017-11-13] MEDS: Morphine 2 mg/ml ISec IVP SCH ×3 (00:21→12:19)
[2017-11-13] MEDS: Pantoprazole 40 mg EC Tab PO SCH (05:06)
[2017-11-13 06:18] LABS: HEMOGLOBIN 17.3 g/dL (14.0-18.0); MEAN CORPUSCULAR HEMOGLOBIN 30.7 pg (25.0-35.0); MEAN CORPUSCULAR HGB CONC 34.5 g/dl (31.0-37.0); MEAN PLATELET VOLUME 10.4 fl (7.0-11.0); RBC 5.63 10^6/uL (3.5-6.1); RED CELL DISTRIBUTION WIDTH 14.5 % (11.5-14.5); WHITE BLOOD COUNT 10.7 10^3/ul (4.5-11.0)
[2017-11-13 06:41] LABS: ALBUMIN 3.7 g/dL (3.0-4.8); ALT/SGPT 26 U/L (7-56); AST/SGOT 29 U/L (17-59); BLOOD UREA NITROGEN 14 mg/dL (7-21); CALCIUM 9.2 mg/dL (8.4-10.5); GFR AFRICAN-AMERICAN > 60; GFR NON-AFRICAN AMERICAN > 60
[2017-11-13 06:47] LABS: CK-MB 1.2 ng/mL (0.0-3.6)
[2017-11-13 06:49] LABS: FREE T4 1.54 ng/dL (0.78-2.19)
[2017-11-13] MEDS: Lidocaine 5% Patch TD SCH ×2 (08:50→11:38)
[2017-11-13] MEDS: Insulin Lispro (HUMAlog) HIGH Coverage SC SCH ×4 (08:51→22:00)
[2017-11-13] MEDS ORDERED: Gadodiamide 287 MG/ML VIAL (20ML) IV ONE (10:49)
--- NOTE | 2017-11-13 12:17 | CP.PCM.CON ---
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, no spinal instability/neural element comprimise prognosis poor do not believe craniotomy/excision would benefit Pt rec XRT eval (poss good stereotaxic rad candidate) Past Patient History - Infectious Disease Hx of Infectious Diseases: None - Past Social History Smoking Status: Heavy Smoker > 10 Cigarettes Daily - CARDIAC Hx Hypertension: Yes - ENDOCRINE/METABOLIC Hx Diabetes Mellitus Type 2: Yes - MUSCULOSKELETAL/RHEUMATOLOGICAL Hx Falls: No - PSYCHIATRIC Hx Substance Use: No - SURGICAL HISTORY Hx Surgeries: No - ANESTHESIA Hx Anesthesia: No Meds Allergies/Adverse Reactions: Allergies Allergy/AdvReac Type Severity Reaction Status Date / Time No Known Allergies Allergy Verified 11/11/17 11:41 - Medications Medications: Current Medications Acetaminophen (Tylenol 325mg Tab) 650 mg PO Q6H PRN PRN Reason: Fever >100.4 F Atorvastatin Calcium (Lipitor) 40 mg PO HS [facility] Last Admin: 11/12/17 21:11 Dose: 40 mg Cyclobenzaprine HCl (Flexeril) 5 mg PO TID [facility] Last Admin: 11/13/17 11:38 Dose: Not Given Glimepiride (Amaryl) 1 mg PO BID [facility] Last Admin: 11/13/17 11:37 Dose: Not Given Ibuprofen (Motrin Tab) 400 mg PO Q6H PRN PRN Reason: Pain, Mild (1-3) Last Admin: 11/12/17 12:30 Dose: 400 mg Insulin Human Lispro (Humalog High) 0 units SC ACHS [facility] PRN Reason: Protocol Last Admin: 11/13/17 08:51 Dose: 4 units Lidocaine (Lidoderm) 1 ea TD DAILY [facility] Last Admin: 11/13/17 11:38 Dose: Not Given Lisinopril (Zestril) 10 mg PO DAILY [facility] Last Admin: 11/13/17 11:38 Dose: Not Given Morphine Sulfate (Morphine) 2 mg IVP Q6H [facility] Last Admin: 11/13/17 05:29 Dose: Not Given Morphine Sulfate (Morphine) 2 mg IVP Q4H PRN PRN Reason: Pain, severe (8-10) Last Admin: 11/13/17 05:07 Dose: 2 mg Pantoprazole Sodium (Protonix Ec Tab) 40 mg PO 0600 [facility] Last Admin: 11/13/17 05:06 Dose: 40 mg Results - Vital Signs Recent Vital Signs: Last Vital Signs Temp 98.9 F 11/13/17 05:51 Pulse 84 11/13/17 08:51 Resp 20 11/13/17 05:51 BP 148/88 11/13/17 08:51 Pulse Ox 94 L 11/13/17 05:51 - Labs Result Diagrams: 11/13/17 06:00 11/13/17 06:00 Labs: Laboratory Results - last 24 hr 11/12/17 11/12/17 11/12/17 16:17 20:22 21:41 WBC RBC Hgb Hct MCV MCH MCHC RDW Plt Count MPV Sodium Potassium Chloride Carbon Dioxide Anion Gap BUN Creatinine Est GFR ( Amer) Est GFR (Non-Af Amer) POC Glucose (mg/dL) 241 H 219 H Random Glucose Calcium Total Bilirubin AST ALT Alkaline Phosphatase Total Creatine Kinase 791 H CK-MB (CK-2) 1.5 CK-MB (CK-2) % Cancelled Total Protein Albumin Globulin Albumin/Globulin Ratio Prostate Specific Ag Free T4 TSH 3rd Generation 11/13/17 11/13/17 11/13/17 06:00 06:00 06:00 WBC 10.7 D RBC 5.63 Hgb 17.3 Hct 50.1 MCV 89.0 MCH 30.7 MCHC 34.5 RDW 14.5 Plt Count 336 MPV 10.4 Sodium 142 Potassium 4.2 Chloride 109 H Carbon Dioxide 23 Anion Gap 14 BUN 14 Creatinine 0.8 Est GFR ( Amer) > 60 Est GFR (Non-Af Amer) > 60 POC Glucose (mg/dL) Random Glucose 199 H Calcium 9.2 Total Bilirubin 0.4 AST 29 ALT 26 Alkaline Phosphatase 60 Total Creatine Kinase 637 H CK-MB (CK-2) 1.2 CK-MB (CK-2) % Cancelled Total Protein 7.3 Albumin 3.7 Globulin 3.6 Albumin/Globulin Ratio 1.0 L Prostate Specific Ag Free T4 TSH 3rd Generation 11/13/17 11/13/17 11/13/17 06:00 06:00 07:18 WBC RBC Hgb Hct MCV MCH MCHC RDW Plt Count MPV Sodium Potassium Chloride Carbon Dioxide Anion Gap BUN Creatinine Est GFR ( Amer) Est GFR (Non-Af Amer) POC Glucose (mg/dL) 206 H Random Glucose Calcium Total Bilirubin AST ALT Alkaline Phosphatase Total Creatine Kinase CK-MB (CK-2) CK-MB (CK-2) % Total Protein Albumin Globulin Albumin/Globulin Ratio Prostate Specific Ag 0.5 Free T4 1.54 TSH 3rd Generation 2.47
[2017-11-13] MEDS: Insulin Detemir 100 units/ml Vial (Levemir) SC SCH (13:31)
[2017-11-13] MEDS: Menthol/Methyl Salicylate Ointment(1 oz) TOP SCH ×4 (13:40→22:00)
--- NOTE | 2017-11-13 14:46 | MRI ---
PROCEDURE: MRI BRAIN WITH AND WITHOUT CONTRAST HISTORY: brain mass COMPARISON: CT of the head 11/11/2017 TECHNIQUE: Multiplanar, multisequence MR images of the brain were obtained with and without intravenous contrast enhancement. 20 cc of Omniscan FINDINGS: HEMORRHAGE: There is a hemorrhagic left occipital lesion. There is a well-circumscribed hemosiderin rim. There is a mixture of subacute and chronic blood products. DWI: No evidence of an acute or early subacute infarction. BRAIN PARENCHYMA: The left occipital hemorrhagic mass shows a small focus of enhancement along its superior border. This focus of enhancement measures 6 mm in diameter. The larger nonenhancing hemorrhagic component measures 15 mm in diameter. There is a moderate amount of vasogenic edema surrounding the lesion. Findings are consistent with a solitary metastasis or primary malignancy. Although some of the features of this lesion are suggestive of a benign vascular malformation the presence of vasogenic edema and the small focus of enhancement is more consistent with a neoplastic lesion ENHANCEMENT: 6 mm focus of enhancement along the superior border of the lesion described above VENTRICLES: Unremarkable. No hydrocephalus. CRANIUM: Unremarkable. ORBITS: Grossly unremarkable. PARANASAL SINUSES/MASTOIDS: Clear VASCULAR SYSTEM: Skull base flow voids intact. OTHER FINDINGS: None . IMPRESSION: Hemorrhagic lesion in the left occipital lobe. There is a 6 mm focus of enhancement and vasogenic edema which is most consistent with a neoplastic lesion
--- NOTE | 2017-11-13 14:52 | MRI ---
PROCEDURE: MR THORACIC SPINE WITH AND WITHOUT CONTRAST HISTORY: spinal compression fractures COMPARISON: None available. TECHNIQUE: Multiecho multiplanar sequences were performed through the thoracic spine with and without the use of intravenous contrast. 20 cc of Omniscan FINDINGS: ALIGNMENT: Normal thoracic spinal alignment. Normal thoracic kyphosis. VERTEBRA: Vertebral body height are preserved. MARROW: Marrow signal unremarkable. PARASPINAL SOFT TISSUES: Unremarkable. CORD: Unremarkable thoracic cord. No volume loss, signal abnormality or syrinx. DISCS: No disc herniation, spinal canal stenosis, or neuroforaminal narrowing. ENHANCEMENT: No abnormal enhancement. OTHER FINDINGS: None. IMPRESSION: Unremarkable pre and post contrast enhanced MRI of the thoracic spine
--- NOTE | 2017-11-13 14:59 | MRI ---
PROCEDURE: MR LUMBAR SPINE WITH AND WITHOUT CONTRAST HISTORY: spinal compression fractures COMPARISON: None available. TECHNIQUE: Multiecho multiplanar sequences were performed through the lumbar spine with and without the use of intravenous contrast. FINDINGS: Normal lumbar lordosis. There is a transverse fracture through the L1 vertebral body with a mild compression deformity. There is edema and enhancement consistent with the recent event. There is also enhancement of the superior endplates of L3, L4 and L5 with mild to moderate compression deformities. Marrow signal unremarkable. Conus medullaris unremarkable at the level of T12 Paraspinal soft tissues are unremarkable. No abnormal enhancement. T12-L1: No disc herniation, spinal canal stenosis or neural foraminal narrowing. L1-2: No disc herniation, spinal canal stenosis or neural foraminal narrowing. L2-3: No disc herniation, spinal canal stenosis or neural foraminal narrowing. L3-4: No disc herniation, spinal canal stenosis or neural foraminal narrowing. L4-5: No disc herniation, spinal canal stenosis or neural foraminal narrowing. L5-S1: No disc herniation, spinal canal stenosis or neural foraminal narrowing. OTHER FINDINGS: None. IMPRESSION: Acute or subacute compression fractures at L1, L3, L4 and L5. No encroachment of the spinal canal.
--- NOTE | 2017-11-13 15:00 | PN ---
DATE: 11/13/2017 CARDIOLOGY FOLLOWUP SUBJECTIVE: The patient's lower back pain is still present after IV morphine. PHYSICAL EXAMINATION: VITAL SIGNS: Blood pressure is 148/88, the heart rates in the 90s. NECK: Negative JVD. LUNGS: Without rales. HEART: Reveals S1, S2. EXTREMITIES: Without edema. LABORATORY DATA: Hemoglobin is 17.3. Chemistries, glucose is 199. Troponins are negative. IMPRESSION: 1. Intracerebral mass. 2. Coronary artery disease. 3. Diabetes mellitus. 4. Chronic obstructive pulmonary disease. 5. Lower back pain. 6. Hypercholesterolemia. Given these findings, awaiting MRI results. We will add an aspirin to his regimen. Haroon Tadeo MD
[2017-11-13] MEDS ORDERED: HYDROmorphone 1 mg/ml ISec IVP ONE (16:00)
--- NOTE | 2017-11-13 17:54 | CP.PCM.PN ---
<JjShay - Last Filed: 11/13/17 18:02> Subjective - Date & Time of Evaluation Date of Evaluation: 11/13/17 Time of Evaluation: 17:52 - Subjective Subjective: Medicine progress note: Dr. Alarcon Patient seen and examined at bedside. Patient still complains of severe back pain, states that he wants Icy Hot for the pain. Patient also nervous about getting addicted to Morphine. Otherwise, no new complaints, and patient denies any change in vision, any dizziness, or any headaches. Objective - Vital Signs/Intake and Output Vital Signs (last 24 hours): Temp Pulse Resp BP Pulse Ox 98.9 F 100 H 20 148/88 94 L 11/13/17 05:51 11/13/17 10:00 11/13/17 05:51 11/13/17 08:51 11/13/17 05:51 Intake and Output: 11/13/17 11/13/17 06:59 18:59 Intake Total 120 480 Output Total 600 750 Balance -480 -270 - Medications Medications: Current Medications Acetaminophen (Tylenol 325mg Tab) 650 mg PO Q6H PRN PRN Reason: Fever >100.4 F Atorvastatin Calcium (Lipitor) 40 mg PO HS [facility] Last Admin: 11/12/17 21:11 Dose: 40 mg Camphor/Menthol (Bengay) 0 gm TOP QID [facility] Last Admin: 11/13/17 13:40 Dose: 1 applic Cyclobenzaprine HCl (Flexeril) 5 mg PO TID [facility] Last Admin: 11/13/17 14:15 Dose: 5 mg Glimepiride (Amaryl) 1 mg PO BID [facility] Last Admin: 11/13/17 11:37 Dose: Not Given Insulin Detemir (Levemir) 4 unit SC Q12H [facility] Last Admin: 11/13/17 13:31 Dose: 4 unit Insulin Human Lispro (Humalog High) 0 units SC ACHS [facility] PRN Reason: Protocol Last Admin: 11/13/17 16:40 Dose: 2 units Lidocaine (Lidoderm) 1 ea TD DAILY [facility] Last Admin: 11/13/17 11:38 Dose: Not Given Lisinopril (Zestril) 10 mg PO DAILY [facility] Last Admin: 11/13/17 11:38 Dose: Not Given Morphine Sulfate (Morphine) 2 mg IVP Q4H PRN PRN Reason: Pain, severe (8-10) Last Admin: 11/13/17 05:07 Dose: 2 mg Pantoprazole Sodium (Protonix Ec Tab) 40 mg PO 0600 [facility] Last Admin: 11/13/17 05:06 Dose: 40 mg - Labs Labs: 11/13/17 06:00 11/13/17 06:00 - Constitutional Appears: Well - Head Exam Head Exam: ATRAUMATIC, NORMAL INSPECTION, NORMOCEPHALIC - Eye Exam Eye Exam: EOMI, Normal appearance, PERRL Pupil Exam: NORMAL ACCOMODATION, PERRL - ENT Exam ENT Exam: Mucous Membranes Moist, Normal Exam - Neck Exam Neck Exam: Full ROM, Normal Inspection. absent: Lymphadenopathy - Respiratory Exam Respiratory Exam: Clear to Ausculation Bilateral, NORMAL BREATHING PATTERN - Cardiovascular Exam Cardiovascular Exam: REGULAR RHYTHM, +S1, +S2. absent: Murmur - GI/Abdominal Exam GI & Abdominal Exam: Soft, Normal Bowel Sounds. absent: Tenderness - Extremities Exam Extremities Exam: Full ROM, Normal Capillary Refill, Normal Inspection. absent : Joint Swelling, Pedal Edema - Back Exam Back Exam: NORMAL INSPECTION - Neurological Exam Neurological Exam: Alert, Awake, CN II-XII Intact, Normal Gait, Oriented x3 - Psychiatric Exam Psychiatric exam: Normal Affect, Normal Mood - Skin Skin Exam: Dry, Intact, Normal Color, Warm Assessment and Plan - Assessment and Plan (Free Text) Assessment: 52 year old male with past medical history of DM, HTN, HLD presents with complaints of lower back pain of sudden onset. Patient also complains of fatigue. Compression Fractures L1, L4, L5 possibly 2/2 possible underlying malignancy -Xray of LS spine showing compression deformities L1, L4, L5 noted. Etiology/ acuity unknown. No comparison studies -One time Dilaudid dose 11/13/17 -Flexeril, Lidocaine, Emeka-Schwartz -PT evaluation pending -MRI lumbar spine pending Leukocytosis 2/2 possible viral illness -Procal: negative -blood cultures: negative -urine cultures pending -afebrile -ID Consult: Dr. Nathan Possible seizure activity -EEG done yesterday -subjective finding, informed by family DM -ISS high with ACHS -Added Levemir 4 q12 -Glimepiride -low consistent carb diet -A1C: 8.0 HTN -monitor -continue home meds HLD -continue lipitor 80 -Lipid panel pending Possible underlying CHF -clnically no signs of fluid overload -EKG NSR @85, pending official read -chest xray: no congestion, no cardiomegaly -BNP: 677 -Cardiology consulted, Tadeo, elías recs -T4 normal, TSH low -echo pending -troponins x 3: negative Lethargy -CT head pending -EEG to rule out seizure Elevated CPK - Resolving -Discontinued daily CPK -NS@100 <Ana Lilia Alarcon B - Last Filed: 11/14/17 14:14> Objective - Vital Signs/Intake and Output Vital Signs (last 24 hours): Temp Pulse Resp BP Pulse Ox 98.2 F 93 H 20 136/95 H 97 11/14/17 06:00 11/14/17 10:00 11/14/17 06:00 11/14/17 06:00 11/14/17 06:00 Intake and Output: 11/14/17 11/14/17 06:59 18:59 Intake Total 360 Output Total 1000 Balance -640 - Labs Labs: 11/14/17 06:00 11/14/17 06:00 Attending/Attestation - Attestation I have personally seen and examined this patient.: Yes I have fully participated in the care of the patient.: Yes I have reviewed all pertinent clinical information, including history, physical exam and plan: Yes Notes (Text): I have seen and examined the patient at bedside. Agree with the above note with the following additions/ exceptions: Briefly this is 52 year old male with past medical history of IDDM, hypertension, hyperlipidemia, morbid obesity, tobacco use who came for evaluation of acute onset of lower midline back pain. He was seen in ED and he ended up leaving A. Patient went home and developed seizure where he had generalized tonic clonic seizure and foaming of the mouth without any urinary or bowel incontinence witnessed by patients . Subsequently patient developed generalized weakness and postictal confusion. Patient was brought to the hospital. CT head revealed occipital mass with some hemorrhagic component along with vasogenic edema. MRI confirmed occipital mass. EEG done and result is pending at this time. Lumbar spine xray and MRI revealed compression fracture of L1, L4 and L5. He denies using steroids and denies any sort of trauma. He was started on muscle relaxants and analgesics. Back brace ordered. Patient denies any numbness, tingling, saddle anesthesias or muscle weakness. CT chest, abdomen and pelvis was done without contrast revealed no additional information. Primary tumor site is unknown. Tumor markers will be sent. Discussed with Neurosurgeon who recommends no surgical intervention at this time. Awaiting heme onc and radiation oncology consult. Patient remains in pain whenever he tries to move however does not have any pain when supine. TLSO brace ordered. PT eval pending. He had mild dyspnea upon presentation and had some EKG changes. Echo pending. Cardiology consult appreciated. He is not on aspirin because CT and MRI head revealed some hemorrhagic component. CXR negative for infiltrates. Patient had leukocytosis which has resolved. UA and flu negative. Cultures pending. Upon discharge patient will up with PMD Dr. Villalobos. Dr Ana Lilia alarcon
--- NOTE | 2017-11-13 18:34 | CT ---
PROCEDURE: CT Chest, Abdomen and Pelvis without intravenous contrast HISTORY: looking for 1 malign in L/O brain mass, fractures COMPARISON: None. TECHNIQUE: Radiation dose: Total exam DLP = 1690.80 mGy-cm. This CT exam was performed using one or more of the following dose reduction techniques: Automated exposure control, adjustment of the mA and/or kV according to patient size, and/or use of iterative reconstruction technique. FINDINGS: CT CHEST WITHOUT CONTRAST: LUNGS: Clear. No nodule, mass or consolidation. MEDIASTINUM: Unremarkable. Normal caliber aorta and pulmonary arterial trunk. Normal size heart. LYMPH NODES: Unremarkable. PLEURA: Unremarkable. No pneumothorax. No pleural fluid. BONES: Unremarkable. OTHER FINDINGS: Diffusely enlarged, incompletely visualized thyroid gland. No focal thyroid abnormalities. CT ABDOMEN AND PELVIS: LIVER: Unremarkable. No gross lesion or ductal dilatation. GALLBLADDER AND BILE DUCTS: Unremarkable. PANCREAS: Unremarkable. No gross lesion or ductal dilatation. SPLEEN: Unremarkable. ADRENALS: Unremarkable. No mass. KIDNEYS AND URETERS: Unremarkable. No hydronephrosis. No solid mass. Incidental finding(s): Bilateral cysts the largest in the upper pole of the left kidney measures 4.8 x 5.9 x 8.8 cm. VASCULATURE: Unremarkable. No aortic aneurysm. BOWEL: Constipation without fecal impaction or obstruction. APPENDIX: Normal appendix. PERITONEUM: Unremarkable. No free fluid. No free air. LYMPH NODES: Unremarkable. No enlarged lymph nodes. BLADDER: No focal or diffuse abnormalities. Contrast within the urinary bladder. REPRODUCTIVE: Unremarkable. BONES: No acute fracture. OTHER FINDINGS: None. IMPRESSION: No significant or acute findings to account for/ related to the clinical presentation. Additional benign and/or incidental findings described above. Limitations of the current examination: Absence of oral and intravenous contrast
[2017-11-13 23:47] VITALS: RESP 20
[2017-11-14] MEDS: Insulin Detemir 100 units/ml Vial (Levemir) SC SCH (00:52)
[2017-11-14] MEDS ORDERED: Insulin Detemir 100 units/ml Vial (Levemir) SC SCH (00:53)
[2017-11-14] MEDS: Pantoprazole 40 mg EC Tab PO SCH (05:24)
[2017-11-14 06:13] VITALS: BP 136/95; TEMP 98.2; O2SAT 97
[2017-11-14 06:16] LABS: HEMOGLOBIN 17.2 g/dL (14.0-18.0); MEAN CELL VOLUME 90.1 fl (80.0-105.0); MEAN CORPUSCULAR HEMOGLOBIN 30.4 pg (25.0-35.0); MEAN CORPUSCULAR HGB CONC 33.7 g/dl (31.0-37.0); MEAN PLATELET VOLUME 10.3 fl (7.0-11.0); RBC 5.66 10^6/uL (3.5-6.1); RED CELL DISTRIBUTION WIDTH 14.6 % (11.5-14.5); WHITE BLOOD COUNT 9.8 10^3/ul (4.5-11.0)
[2017-11-14 07:20] LABS: ALBUMIN 3.7 g/dL (3.0-4.8); ALT/SGPT 25 U/L (7-56); AST/SGOT 24 U/L (17-59); BLOOD UREA NITROGEN 19 mg/dL (7-21); CALCIUM 9.4 mg/dL (8.4-10.5); GFR AFRICAN-AMERICAN > 60; GFR NON-AFRICAN AMERICAN > 60
[2017-11-14] MEDS: Insulin Lispro (HUMAlog) HIGH Coverage SC SCH (07:59)
--- NOTE | 2017-11-14 09:06 | CON ---
DATE: 11/13/2017 HISTORY OF PRESENT ILLNESS: This is a 52-year-old male with several medical problems and a [id number] smoking history, who presented actually with acute low back pain, was found to have compression fractures. he had CT of the brain, which then documented a left occipital tumor. He has undergone further workup with MR imaging today. PAST MEDICAL HISTORY: Most salient as above. Overall he complains of low back pain. He denies any particular complaints. Denies any weakness or numbness. No other neurological complaints or finding. Again, his past medical history was reviewed and salient as above. PHYSICAL EXAMINATION: He is quite awake and alert. Speech is appropriate what I believe is his second language. He follows all commands. He is moving all extremities with 5/5 strength. His reflexes are muted. He does have fair amount of tenderness to palpation in the lower lumbar spine. IMAGING STUDIES: The MRI of the brain shows a relatively small enhancing lesion in the left medial occipital lobe, just abutting the enhancing and spherical, most consistent with metastasis. The MRI of the thoracic spine is basically a negative study. MRI of the lumbar spine documents compression fractures that is an update at L4-L5, possibly in the L1. IMPRESSION AND PLAN: More than likely this is metastatic disease and unfortunately it is likely the patient's diagnosis is not too good. The occipital tumor is small dominant hemisphere and thought to be inaccessible; on top of that, it is basically asymptomatic. My recommendations would be probably stereotactic radiation; I would advocate obtaining a Radiation Oncology consult. Similarly regarding the lumbar spine, there is very little, minimal loss of height; this is a fracture and there is no canal or neural element compromise. Similarly, I would advocate treatment with radiation of these lesions as well. In the interim, he will need some additional pain management and LSO brace would be a good idea as well. Jim Shaikh MD
[2017-11-14] MEDS: Menthol/Methyl Salicylate Ointment(1 oz) TOP SCH (09:53)
[2017-11-14] MEDS: Lidocaine 5% Patch TD SCH (09:53)
--- NOTE | 2017-11-14 10:03 | CP.PCM.CON ---
History of Present Illness - History of Present Illness History of Present Illness: Mr Rivera is a 52 year old male who was admitted to [facility] with an acute onset of lower back pain that was debilitating that precluded him from ambulating. On admission, he had x-rays of the lumbar spine which showed multiple compression fractures. A CT of the head on November 11, 2017 revealed a 1.7 x 1.6 x 1.7cm left occipital mass with edema. A MRI of the brain on November 13, 2017 revealed a left occipital mass with hemorrhagic component measuring 1.5 x 0.6mm with vasogenic edema. A MRI of the T spine which revealed no lesions. A MRI of the lumbar spine revealed acute and subacute fracture of L1 and L3-5. A CT of the chest, abdomen and pelvis with no contrast on November 13, 2017 revealed no evidence of metastases. He was evaluated by neurosurgery who felt that surgery was not feasible. He states that his back pain is exacerbated when moving or sitting/standing. He denies any headaches, chest pain, shortness of breath or GI symptoms. We were asked to see him for our input. Review of Systems - Musculoskeletal Musculoskeletal: Back Pain Past Patient History - Infectious Disease Hx of Infectious Diseases: None - Past Social History Smoking Status: Heavy Smoker > 10 Cigarettes Daily Alcohol: None Home Situation {Lives}: With Family - CARDIAC Hx Hypertension: Yes - ENDOCRINE/METABOLIC Hx Diabetes Mellitus Type 2: Yes - MUSCULOSKELETAL/RHEUMATOLOGICAL Hx Falls: No - PSYCHIATRIC Hx Substance Use: No - SURGICAL HISTORY Hx Surgeries: No - ANESTHESIA Hx Anesthesia: No Meds Allergies/Adverse Reactions: Allergies Allergy/AdvReac Type Severity Reaction Status Date / Time No Known Allergies Allergy Verified 11/11/17 11:41 - Medications Medications: Current Medications Acetaminophen (Tylenol 325mg Tab) 650 mg PO Q6H PRN PRN Reason: Fever >100.4 F Atorvastatin Calcium (Lipitor) 40 mg PO HS [facility] Last Admin: 11/13/17 21:45 Dose: 40 mg Camphor/Menthol (Bengay) 0 gm TOP QID [facility] Last Admin: 11/14/17 09:53 Dose: Not Given Cyclobenzaprine HCl (Flexeril) 5 mg PO TID [facility] Last Admin: 11/14/17 09:53 Dose: Not Given Glimepiride (Amaryl) 1 mg PO BID [facility] Last Admin: 11/14/17 09:53 Dose: Not Given Insulin Detemir (Levemir) 4 unit SC Q12 [facility] Last Admin: 11/14/17 09:53 Dose: Not Given Insulin Human Lispro (Humalog High) 0 units SC ACHS [facility] PRN Reason: Protocol Last Admin: 11/14/17 07:59 Dose: 4 units Lidocaine (Lidoderm) 1 ea TD DAILY [facility] Last Admin: 11/14/17 09:53 Dose: Not Given Lisinopril (Zestril) 10 mg PO DAILY [facility] Last Admin: 11/14/17 09:54 Dose: Not Given Morphine Sulfate (Morphine) 2 mg IVP Q4H PRN PRN Reason: Pain, severe (8-10) Last Admin: 11/13/17 05:07 Dose: 2 mg Pantoprazole Sodium (Protonix Ec Tab) 40 mg PO 0600 [facility] Last Admin: 11/14/17 05:24 Dose: 40 mg Physical Exam - Head Exam Head Exam: NORMAL INSPECTION - Eye Exam Eye Exam: EOMI - ENT Exam ENT Exam: Mucous Membranes Moist - Respiratory Exam Respiratory Exam: Clear to Auscultation Bilateral - Cardiovascular Exam Cardiovascular Exam: REGULAR RHYTHM - GI/Abdominal Exam GI & Abdominal Exam: Normal Bowel Sounds - Back Exam Back exam: tenderness Results - Vital Signs Recent Vital Signs: Last Vital Signs Temp 98.2 F 11/14/17 06:00 Pulse 78 11/14/17 06:00 Resp 20 11/14/17 06:00 BP 136/95 H 11/14/17 06:00 Pulse Ox 97 11/14/17 06:00 - Labs Result Diagrams: 11/14/17 06:00 11/14/17 06:00 Labs: Laboratory Results - last 24 hr 11/13/17 11/13/17 11/13/17 06:00 06:00 06:00 WBC RBC Hgb Hct MCV MCH MCHC RDW Plt Count MPV Sodium Potassium Chloride Carbon Dioxide Anion Gap BUN Creatinine Est GFR ( Amer) Est GFR (Non-Af Amer) POC Glucose (mg/dL) Random Glucose Calcium Total Bilirubin AST ALT Alkaline Phosphatase C-React Prot High Sens > 15.00 H Total Protein Albumin Globulin Albumin/Globulin Ratio Prostate Specific Ag Procalcitonin < 0.05 L HIV 1&2 Ag/Ab, 4th Gen Nonreactive 11/13/17 11/13/17 11/13/17 06:00 07:18 12:28 WBC RBC Hgb Hct MCV MCH MCHC RDW Plt Count MPV Sodium Potassium Chloride Carbon Dioxide Anion Gap BUN Creatinine Est GFR ( Amer) Est GFR (Non-Af Amer) POC Glucose (mg/dL) 206 H 187 H Random Glucose Calcium Total Bilirubin AST ALT Alkaline Phosphatase C-React Prot High Sens Total Protein Albumin Globulin Albumin/Globulin Ratio Prostate Specific Ag 0.5 Procalcitonin HIV 1&2 Ag/Ab, 4th Gen 11/13/17 11/14/17 11/14/17 15:59 06:00 06:00 WBC 9.8 RBC 5.66 Hgb 17.2 Hct 51.0 MCV 90.1 MCH 30.4 MCHC 33.7 RDW 14.6 H Plt Count 364 MPV 10.3 Sodium 143 Potassium 4.4 Chloride 109 H Carbon Dioxide 24 Anion Gap 15 BUN 19 Creatinine 0.8 Est GFR ( Amer) > 60 Est GFR (Non-Af Amer) > 60 POC Glucose (mg/dL) 198 H Random Glucose 237 H Calcium 9.4 Total Bilirubin 0.5 AST 24 ALT 25 Alkaline Phosphatase 61 C-React Prot High Sens Total Protein 7.4 Albumin 3.7 Globulin 3.7 Albumin/Globulin Ratio 1.0 L Prostate Specific Ag Procalcitonin HIV 1&2 Ag/Ab, 4th Gen Assessment & Plan - Assessment and Plan (Free Text) Assessment: Mr Rivera is a 52 year old male with a new left occipital brain lesion with edema as well as multiple lumbar acute/subacute compression fracture worrisome for a pathology underlying etiology. Unfortunately the primary lesion is not clearly identifiable at this time based on the current studies. He currently wants to leave [facility]. We spoke to him about the possibility of kyphoplasty with IR with a bone biopsy for pain relieve and pathologic confirmation. We also mentioned a PET scan to try to determine a primary source. Once cancer pathology is confirmed, we would recommended SRS to the brain lesion as well as palliative radiation to his back. We briefly spoke to him about both treatments. We would recommend starting him on a low dose decadron 2mg BID given his vasogenic edema. We gave him our contact information, and he is agreeable to meeting us as an outpatient since he is insistent about not staying in the hospital any further.
[2017-11-14 10:49] VITALS: PULSE 93
--- NOTE | 2017-11-14 11:46 | CP.PCM.DIS ---
<Shay Gardner - Last Filed: 11/14/17 18:27> Provider - Provider Date of Admission: 11/12/17 14:52 Attending physician: Ana Lilia Alarcon MD Primary care physician: Gil Villalobos Consults: Dr. West- Heme/Onc Dr. Shaikh - Neurosurgery Dr. Barger - Neurology Dr. Nathan - ID Time Spent in preparation of Discharge (in minutes): 45 Hospital Course - Lab Results Lab Results: Most Recent Lab Values WBC 9.8 10^3/ul (4.5-11.0) 11/14/17 06:00 RBC 5.66 10^6/uL (3.5-6.1) 11/14/17 06:00 Hgb 17.2 g/dL (14.0-18.0) 11/14/17 06:00 Hct 51.0 % (42.0-52.0) 11/14/17 06:00 MCV 90.1 fl (80.0-105.0) 11/14/17 06:00 MCH 30.4 pg (25.0-35.0) 11/14/17 06:00 MCHC 33.7 g/dl (31.0-37.0) 11/14/17 06:00 RDW 14.6 % (11.5-14.5) H 11/14/17 06:00 Plt Count 364 10^3/uL (120.0-450.0) 11/14/17 06:00 MPV 10.3 fl (7.0-11.0) 11/14/17 06:00 Gran % 68.2 % (50.0-68.0) H 11/11/17 12:57 Lymph % (Auto) 27.0 % (22.0-35.0) 11/11/17 12:57 [place] % (Auto) 4.1 % (1.0-6.0) 11/11/17 12:57 Eos % (Auto) 0.5 % (1.5-5.0) L 11/11/17 12:57 Baso % (Auto) 0.2 % (0.0-3.0) 11/11/17 12:57 Gran # 8.97 (1.4-6.5) H 03/11/18 12:57 Lymph # (Auto) 3.6 (1.2-3.4) H 11/11/17 12:57 [place] # (Auto) 0.5 (0.1-0.6) 11/11/17 12:57 Eos # (Auto) 0.1 (0.0-0.7) 11/11/17 12:57 Baso # (Auto) 0.03 K/mm3 (0.0-2.0) 11/11/17 12:57 Sodium 143 mmol/L (132-148) 11/14/17 06:00 Potassium 4.4 mmol/L (3.6-5.0) 11/14/17 06:00 Chloride 109 mmol/L (98-107) H 11/14/17 06:00 Carbon Dioxide 24 mmol/L (21-33) 11/14/17 06:00 Anion Gap 15 (10-20) 11/14/17 06:00 BUN 19 mg/dL (7-21) 11/14/17 06:00 Creatinine 0.8 mg/dl (0.8-1.5) 11/14/17 06:00 Est GFR ( Amer) > 60 11/14/17 06:00 Est GFR (Non-Af Amer) > 60 11/14/17 06:00 POC Glucose (mg/dL) 198 mg/dL (65-110) H 11/13/17 15:59 Random Glucose 237 mg/dL (70-110) H 11/14/17 06:00 Hemoglobin A1c 8.0 % (4.2-6.5) H 11/11/17 12:57 Calcium 9.4 mg/dL (8.4-10.5) 11/14/17 06:00 Total Bilirubin 0.5 mg/dL (0.2-1.3) 11/14/17 06:00 AST 24 U/L (17-59) 11/14/17 06:00 ALT 25 U/L (7-56) 11/14/17 06:00 Alkaline Phosphatase 61 U/L (38-126) 11/14/17 06:00 Lactate Dehydrogenase 934 U/L (333-699) H 11/11/17 12:57 Total Creatine Kinase 637 U/L (35-230) H 11/13/17 06:00 CK-MB (CK-2) 1.2 ng/mL (0.0-3.6) 11/13/17 06:00 CK-MB (CK-2) % Cancelled 11/11/17 12:57 Troponin I 0.02 ng/mL 11/12/17 01:08 C-React Prot High Sens > 15.00 mg/L (1.00-3.00) H 11/13/17 06:00 NT-Pro-B Natriuret Pep 677 pg/mL (0-450) H 11/11/17 12:57 Total Protein 7.4 g/dL (5.8-8.3) 11/14/17 06:00 Albumin 3.7 g/dL (3.0-4.8) 11/14/17 06:00 Globulin 3.7 gm/dL 11/14/17 06:00 Albumin/Globulin Ratio 1.0 (1.1-1.8) L 11/14/17 06:00 Triglycerides 307 mg/dL (35-160) H 11/11/17 12:57 Cholesterol 213 mg/dL (130-200) H 11/11/17 12:57 LDL Cholesterol Direct 133 mg/dL (0-129) H 11/11/17 12:57 HDL Cholesterol 32 mg/dL (29-60) 11/11/17 12:57 Carcinoembryonic Ag 8.9 ng/mL (0.0-3.0) H 11/14/17 06:00 Prostate Specific Ag 0.5 ng/mL (0.00-2.5) 11/14/17 06:00 Procalcitonin < 0.05 NG/ML (0.19-0.49) L 11/13/17 06:00 Free T4 1.54 ng/dL (0.78-2.19) 11/13/17 06:00 Thyroxine (T4) 7.1 ug/dL (5.5-11.0) 11/11/17 12:57 TSH 3rd Generation 2.47 mIU/mL (0.46-4.68) 11/13/17 06:00 Urine Color Yellow (YELLOW) 11/11/17 18:45 Urine Appearance Clear (CLEAR) 11/11/17 18:45 Urine pH 6.0 (4.7-8.0) 11/11/17 18:45 Ur Specific [place] 1.025 (1.005-1.035) 11/11/17 18:45 Urine Protein 100 mg/dL (<30 mg/dL) H 11/11/17 18:45 Urine Glucose (UA) >=1000 mg/dL (NEGATIVE) 11/11/17 18:45 Urine Ketones Negative mg/dL (NEGATIVE) 11/11/17 18:45 Urine Blood Moderate (NEGATIVE) H 11/11/17 18:45 Urine Nitrate Negative (NEGATIVE) 11/11/17 18:45 Urine Bilirubin Negative (NEGATIVE) 11/11/17 18:45 Urine Urobilinogen 0.2 E.U./dL (<1 E.U./dL) 11/11/17 18:45 Ur Leukocyte Esterase Negative Christina/uL (NEGATIVE) 11/11/17 18:45 Urine RBC 5 - 10 /hpf (0-2) 11/11/17 18:45 Urine WBC 1 - 3 /hpf (0-6) 11/11/17 18:45 Ur Epithelial Cells 0 - 2 /hpf (0-5) 11/11/17 18:45 Urine Bacteria Large (NEG) 03 18:45 Urine Opiates Screen Negative (NEGATIVE) 11/11/17 18:45 Urine Methadone Screen Negative (NEGATIVE) 11/11/17 18:45 Ur Barbiturates Screen Negative (NEGATIVE) 11/11/17 18:45 Ur Phencyclidine Scrn Negative (NEGATIVE) 11/11/17 18:45 Ur Amphetamines Screen Negative (NEGATIVE) 11/11/17 18:45 U Benzodiazepines Scrn Negative (NEGATIVE) 11/11/17 18:45 U Oth Cocaine Metabols Negative (NEGATIVE) 11/11/17 18:45 U Cannabinoids Screen Negative (NEGATIVE) 11/11/17 18:45 HIV 1&2 Ag/Ab, 4th Gen Nonreactive (Nonreactive) 11/13/17 06:00 Influenza Typ A,B (EIA) Negative for flu a/b (NEGATIVE) 11/11/17 20:20 - Hospital Course Hospital Course: 52 year old male with past medical history of DM, HTN, HLD presented with complaints of lower back pain that had started two days previously. Patient was admitted the day before he came in as well, but left AMA. Patient stated that the pain started without any inciting events. Patient has a strong history of smoking. Patient's pain throughout the hospital course was not alleviated with Morphine or Dilaudid; patient stated that the only thing that helped was Icy Hot. He did not exhibit any pain medicine seeking behavior Upon further investigation with an MRI of the brain, patient was found to have an occipital mass that was deemed to be a metastatic lesion. A CT abdomen, pelvis, and chest did not show any lesions of origin. A PET scan was scheduled , but patient wanted to leave AMA before it could be done. He was advised to follow up with Dr. Kay and Dr. West for consults for heme onc and kyphoplasty. Patient left [place] with prescriptions for referrals and PET Scan. Discharge Exam - Head Exam Head Exam: NORMAL INSPECTION - Eye Exam Eye Exam: EOMI, Normal appearance, PERRL Pupil Exam: NORMAL ACCOMODATION, PERRL - GI/Abdominal Exam GI & Abdominal Exam: Normal Bowel Sounds - Neurological Exam Neurological exam: Alert, CN II-XII Intact, Normal Gait, Oriented x3, Reflexes Normal - Psychiatric Exam Psychiatric exam: Normal Affect, Normal Mood - Skin Skin Exam: Dry, Intact, Normal Color, Warm Discharge Plan - Follow Up Plan Condition: GOOD Disposition: AGAINST MEDICAL ADVICE Patient education suggested?: Yes Additional Instructions: Please follow up with Dr. West as per prescription Please follow up with Dr. Kay as per prescription Please return to the emergency room should you have any further symptoms Referrals: Gil Villalobos [Primary Care Provider] - <Ana Lilia Alarcon - Last Filed: 11/15/17 12:25> Provider - Provider Date of Admission: 11/12/17 14:52 Attending physician: Ana Lilia Alarcon MD Primary care physician: Gil Wang [facility] Course - Lab Results Lab Results: Most Recent Lab Values WBC 9.8 10^3/ul (4.5-11.0) 11/14/17 06:00 RBC 5.66 10^6/uL (3.5-6.1) 11/14/17 06:00 Hgb 17.2 g/dL (14.0-18.0) 11/14/17 06:00 Hct 51.0 % (42.0-52.0) 11/14/17 06:00 MCV 90.1 fl (80.0-105.0) 11/14/17 06:00 MCH 30.4 pg (25.0-35.0) 11/14/17 06:00 MCHC 33.7 g/dl (31.0-37.0) 11/14/17 06:00 RDW 14.6 % (11.5-14.5) H 11/14/17 06:00 Plt Count 364 10^3/uL (120.0-450.0) 11/14/17 06:00 MPV 10.3 fl (7.0-11.0) 11/14/17 06:00 Gran % 68.2 % (50.0-68.0) H 11/11/17 12:57 Lymph % (Auto) 27.0 % (22.0-35.0) 11/11/17 12:57 [place] % (Auto) 4.1 % (1.0-6.0) 11/11/17 12:57 Eos % (Auto) 0.5 % (1.5-5.0) L 11/11/17 12:57 Baso % (Auto) 0.2 % (0.0-3.0) 11/11/17 12:57 Gran # 8.97 (1.4-6.5) H 11/11/17 12:57 Lymph # (Auto) 3.6 (1.2-3.4) H 11/11/17 12:57 [place] # (Auto) 0.5 (0.1-0.6) 11/11/17 12:57 Eos # (Auto) 0.1 (0.0-0.7) 11/11/17 12:57 Baso # (Auto) 0.03 K/mm3 (0.0-2.0) 11/11/17 12:57 Sodium 143 mmol/L (132-148) 11/14/17 06:00 Potassium 4.4 mmol/L (3.6-5.0) 11/14/17 06:00 Chloride 109 mmol/L (98-107) H 11/14/17 06:00 Carbon Dioxide 24 mmol/L (21-33) 11/14/17 06:00 Anion Gap 15 (10-20) 11/14/17 06:00 BUN 19 mg/dL (7-21) 11/14/17 06:00 Creatinine 0.8 mg/dl (0.8-1.5) 11/14/17 06:00 Est GFR ( Amer) > 60 11/14/17 06:00 Est GFR (Non-Af Amer) > 60 11/14/17 06:00 POC Glucose (mg/dL) 212 mg/dL (65-110) H 11/14/17 07:27 Random Glucose 237 mg/dL (70-110) H 11/14/17 06:00 Hemoglobin A1c 8.0 % (4.2-6.5) H 11/11/17 12:57 Calcium 9.4 mg/dL (8.4-10.5) 11/14/17 06:00 Total Bilirubin 0.5 mg/dL (0.2-1.3) 11/14/17 06:00 AST 24 U/L (17-59) 11/14/17 06:00 ALT 25 U/L (7-56) 11/14/17 06:00 Alkaline Phosphatase 61 U/L (38-126) 11/14/17 06:00 Lactate Dehydrogenase 934 U/L (333-699) H 11/11/17 12:57 Total Creatine Kinase 637 U/L (35-230) H 11/13/17 06:00 CK-MB (CK-2) 1.2 ng/mL (0.0-3.6) 11/13/17 06:00 CK-MB (CK-2) % Cancelled 11/11/17 12:57 Troponin I 0.02 ng/mL 11/12/17 01:08 C-React Prot High Sens > 15.00 mg/L (1.00-3.00) H 11/13/17 06:00 NT-Pro-B Natriuret Pep 677 pg/mL (0-450) H 11/11/17 12:57 Total Protein 7.4 g/dL (5.8-8.3) 11/14/17 06:00 Albumin 3.7 g/dL (3.0-4.8) 11/14/17 06:00 Globulin 3.7 gm/dL 11/14/17 06:00 Albumin/Globulin Ratio 1.0 (1.1-1.8) L 11/14/17 06:00 Triglycerides 307 mg/dL (35-160) H 11/11/17 12:57 Cholesterol 213 mg/dL (130-200) H 11/11/17 12:57 LDL Cholesterol Direct 133 mg/dL (0-129) H 11/11/17 12:57 HDL Cholesterol 32 mg/dL (29-60) 11/11/17 12:57 Carcinoembryonic Ag 8.9 ng/mL (0.0-3.0) H 11/14/17 06:00 CA 19-9 Antigen < 1.4 U/mL (0-37) 11/14/17 06:00 CA 125 Antigen 15.0 U/mL (0-35) 11/14/17 06:00 Prostate Specific Ag 0.5 ng/mL (0.00-2.5) 11/14/17 06:00 Procalcitonin < 0.05 NG/ML (0.19-0.49) L 11/13/17 06:00 Free T4 1.54 ng/dL (0.78-2.19) 11/13/17 06:00 Thyroxine (T4) 7.1 ug/dL (5.5-11.0) 11/11/17 12:57 TSH 3rd Generation 2.47 mIU/mL (0.46-4.68) 11/13/17 06:00 Urine Color Yellow (YELLOW) 11/11/17 18:45 Urine Appearance Clear (CLEAR) 11/11/17 18:45 Urine pH 6.0 (4.7-8.0) 11/11/17 18:45 Ur Specific [place] 1.025 (1.005-1.035) 11/11/17 18:45 Urine Protein 100 mg/dL (<30 mg/dL) H 11/11/17 18:45 Urine Glucose (UA) >=1000 mg/dL (NEGATIVE) 11/11/17 18:45 Urine Ketones Negative mg/dL (NEGATIVE) 11/11/17 18:45 Urine Blood Moderate (NEGATIVE) H 11/11/17 18:45 Urine Nitrate Negative (NEGATIVE) 11/11/17 18:45 Urine Bilirubin Negative (NEGATIVE) 11/11/17 18:45 Urine Urobilinogen 0.2 E.U./dL (<1 E.U./dL) 11/11/17 18:45 Ur Leukocyte Esterase Negative Christina/uL (NEGATIVE) 11/11/17 18:45 Urine RBC 5 - 10 /hpf (0-2) 11/11/17 18:45 Urine WBC 1 - 3 /hpf (0-6) 11/11/17 18:45 Ur Epithelial Cells 0 - 2 /hpf (0-5) 11/11/17 18:45 Urine Bacteria Large (NEG) 11/11/17 18:45 Urine Opiates Screen Negative (NEGATIVE) 11/11/17 18:45 Urine Methadone Screen Negative (NEGATIVE) 11/11/17 18:45 Ur Barbiturates Screen Negative (NEGATIVE) 11/11/17 18:45 Ur Phencyclidine Scrn Negative (NEGATIVE) 11/11/17 18:45 Ur Amphetamines Screen Negative (NEGATIVE) 11/11/17 18:45 U Benzodiazepines Scrn Negative (NEGATIVE) 11/11/17 18:45 U Oth Cocaine Metabols Negative (NEGATIVE) 11/11/17 18:45 U Cannabinoids Screen Negative (NEGATIVE) 11/11/17 18:45 HIV 1&2 Ag/Ab, 4th Gen Nonreactive (Nonreactive) 11/13/17 06:00 Influenza Typ A,B (EIA) Negative for flu a/b (NEGATIVE) 11/11/17 20:20 Attending/Attestation - Attestation I have personally seen and examined this patient.: Yes I have fully participated in the care of the patient.: Yes I have reviewed all pertinent clinical information, including history, physical exam and plan: Yes Notes (Text): I have seen and examined the patient at bedside. Agree with the above note with the following additions/ exceptions: Briefly this is 52 year old male with past medical history of IDDM, hypertension, hyperlipidemia, morbid obesity, tobacco use who came for evaluation of acute onset of lower midline back pain. He was seen in ED and he ended up leaving AMA. Patient went home and developed seizure where he had generalized tonic clonic seizure and foaming of the mouth without any urinary or bowel incontinence witnessed by patients . Subsequently patient developed generalized weakness and postictal confusion. Patient was brought to the hospital. CT head revealed occipital mass with some hemorrhagic component along with vasogenic edema. MRI confirmed occipital mass. EEG done and result is pending at this time. Lumbar spine xray and MRI revealed compression fracture of L1, L4 and L5. He denies using steroids and denies any sort of trauma. He was started on muscle relaxants and analgesics. Back brace ordered and has not been delivered to the patient yet. Patient denies any numbness, tingling, saddle anesthesias or muscle weakness. CT chest, abdomen and pelvis was done without contrast revealed no additional information. Primary tumor site is unknown. Tumor markers were sent. Discussed with Neurosurgeon who recommends no surgical intervention at this time. Patient remains in pain whenever he tries to move however does not have any pain when supine. TLSO brace ordered. PT eval pending. He had mild dyspnea upon presentation and had some EKG changes. Echo pending. Cardiology consult appreciated. He is not on aspirin because CT and MRI head revealed some hemorrhagic component. CXR negative for infiltrates. Patient had leukocytosis which has resolved. UA and flu negative. Cultures are negative so far. We will monitor him off antibiotics. Discussed with Dr Jenna prakash who offered patient to stay for possible kyphoplasty and bone biopsy. She recommended PET scan as an outpatient. Patient states that he will be willing to follow up but he needs to go from the hospital [facility]. Discussed with Dr Kay over the phone who agreed to see the patient in his office. Patient was given MRI and CT reports. Upon discharge patient will up with PMD Dr. Villalobos. Dr Ana Lilia alarcon
--- NOTE | 2017-11-14 13:14 | CP.PCM.CON ---
History of Present Illness - History of Present Illness History of Present Illness: 52 year old male with PMH of HTN, DM, dyslipidemia, obesity with BMI 35 came in to [facility] complaining of lower back pain for about a week now which had worsened over the past 2-3 days. He denies having falls or specific trauma to the back. He denies fever or chills, no nausea or vomiting, no chest pain, no SOB, no sore throat, no cough or colds, no abdominal pain, no dysphagia, no diarrhea, no dysuria. He has occasional headache but denies dizziness, lightheadedness or blurring of vision. In the ED, he was found to have leukocytosis and Infectious Diseases consult is requested to further evaluate and manage. Review of Systems - Review of Systems All systems: reviewed and no additional remarkable complaints except (as per HPI ) Past Patient History - Infectious Disease Hx of Infectious Diseases: None - Past Social History Smoking Status: Heavy Smoker > 10 Cigarettes Daily - CARDIAC Hx Hypertension: Yes - ENDOCRINE/METABOLIC Hx Diabetes Mellitus Type 2: Yes - MUSCULOSKELETAL/RHEUMATOLOGICAL Hx Falls: No - PSYCHIATRIC Hx Substance Use: No - SURGICAL HISTORY Hx Surgeries: No - ANESTHESIA Hx Anesthesia: No Meds Allergies/Adverse Reactions: Allergies Allergy/AdvReac Type Severity Reaction Status Date / Time No Known Allergies Allergy Verified 11/11/17 11:41 - Medications Medications: Current Medications Acetaminophen (Tylenol 325mg Tab) 650 mg PO Q6H PRN PRN Reason: Fever >100.4 F Atorvastatin Calcium (Lipitor) 40 mg PO HS [facility] Last Admin: 11/12/17 21:11 Dose: 40 mg Cyclobenzaprine HCl (Flexeril) 5 mg PO TID [facility] Last Admin: 11/12/17 17:50 Dose: 5 mg Glimepiride (Amaryl) 1 mg PO BID [facility] Last Admin: 11/12/17 17:50 Dose: 1 mg Ibuprofen (Motrin Tab) 400 mg PO Q6H PRN PRN Reason: Pain, Mild (1-3) Last Admin: 11/12/17 12:30 Dose: 400 mg Insulin Human Lispro (Humalog High) 0 units SC ACHS [facility] PRN Reason: Protocol Last Admin: 11/12/17 21:56 Dose: Not Given Lidocaine (Lidoderm) 1 ea TD DAILY [facility] Last Admin: 11/12/17 09:10 Dose: 1 ea Lisinopril (Zestril) 10 mg PO DAILY [facility] Last Admin: 11/12/17 09:10 Dose: 10 mg Morphine Sulfate (Morphine) 2 mg IVP Q6H [facility] Last Admin: 11/12/17 19:01 Dose: 2 mg Morphine Sulfate (Morphine) 2 mg IVP Q4H PRN PRN Reason: Pain, severe (8-10) Pantoprazole Sodium (Protonix Ec Tab) 40 mg PO 0600 [facility] Last Admin: 11/12/17 06:01 Dose: 40 mg Physical Exam - Constitutional Appears: Non-toxic, Chronically Ill - Head Exam Head Exam: NORMAL INSPECTION - Neck Exam Neck exam: Negative for: Meningismus - Respiratory Exam Respiratory Exam: Decreased Breath Sounds - Cardiovascular Exam Cardiovascular Exam: +S1, +S2 - GI/Abdominal Exam GI & Abdominal Exam: Soft. absent: Tenderness Results - Vital Signs Recent Vital Signs: Last Vital Signs Temp 98 F 11/12/17 18:00 Pulse 91 H 11/12/17 21:39 Resp 18 11/12/17 18:00 BP 149/92 H 11/12/17 18:00 Pulse Ox 95 11/12/17 06:00 - Labs Result Diagrams: 11/14/17 06:00 11/14/17 06:00 Labs: Laboratory Results - last 24 hr 11/12/17 11/12/17 16:17 20:22 POC Glucose (mg/dL) 241 H Total Creatine Kinase 791 H CK-MB (CK-2) 1.5 CK-MB (CK-2) % Cancelled Assessment & Plan - Assessment and Plan (Free Text) Plan: Assessment Systemic inflammatory response syndrome, probably due to acute stress response from acute and subacute compression fractures in the lumbar vertebrae left occipital lobe brain mass HTN DM dyslipidemia obesity with BMI 35 Plan Blood cx are negative, urine cx show <10k gram positive organisms but the patient does not have urinary symptoms, WBC count has normalized - continue to monitor the patient off antibiotics follow up medical team's evaluation and plan for the brain mass
--- NOTE | 2017-11-14 15:07 | PN ---
DATE: CARDIOLOGY FOLLOWUP SUBJECTIVE: The patient's symptoms are unchanged. PHYSICAL EXAMINATION: VITAL SIGNS: Blood pressure is 136/95, heart rates in the 90s. NECK: Negative JVD. LUNGS: Without rales. HEART: With S1, S2. EXTREMITIES: Without edema. LABORATORY DATA: Hemoglobin 17.2. Glucose is 237. IMPRESSION: 1. Lower back pain. 2. No sepsis noted. 3. Chronic obstructive pulmonary disease. 4. Hypercholesterolemia. 5. Coronary artery disease. PLAN: Given these findings, the patient's cardiac status is being treated with aspirin, atorvastatin and Zestril. Haroon Tadeo MD
== END 2017-11-14 11:52 | disposition left against medical advice (07) | DRG 239 ==
LOC: ED 11:34 → ERH 15:12 → 2RNO 21:59 → OBSVTOIN 11-12 14:52
PROVIDERS: ADMIT Internal Medicine; ATTEND Hospitalist
DX: M48.56XA Collapsed vertebra, not elsewhere classified, lumbar region, initial encounter for fracture (principal); I11.0 Hypertensive heart disease with heart failure; I50.9 Heart failure, unspecified; E11.65 Type 2 diabetes mellitus with hyperglycemia; J44.9 Chronic obstructive pulmonary disease, unspecified; G40.409 Other generalized epilepsy and epileptic syndromes, not intractable, without status epilepticus; G93.6 Cerebral edema; G93.89 Other specified disorders of brain; E78.00 Pure hypercholesterolemia, unspecified; I25.10 Atherosclerotic heart disease of native coronary artery without angina pectoris; D72.829 Elevated white blood cell count, unspecified; B34.9 Viral infection, unspecified; F17.200 Nicotine dependence, unspecified, uncomplicated; R74.8 Abnormal levels of other serum enzymes; E66.9 Obesity, unspecified; Z68.33 Body mass index [BMI] 33.0-33.9, adult; Z68.35 Body mass index [BMI] 35.0-35.9, adult; Z79.4 Long term (current) use of insulin